=== PATIENT | female | born 1945 | race Caucasian/White ===

== ENCOUNTER → 2016-10-04 | Outpatient (CLI) | payer MEDICARE, MEDICAID ==
[2016-10-04 12:08] LABS: CHLORIDE,CL 103 mmol/L (98-110); SODIUM,NA 138 mmol/L (136-146)
== END ==
LOC: MW.CHIM 11:17
PROVIDERS: ATTEND Internal Medicine
DX: R03.0 Elevated blood-pressure reading, without diagnosis of hypertension (principal); E66.9 Obesity, unspecified; E78.00 Pure hypercholesterolemia, unspecified; E03.9 Hypothyroidism, unspecified; R73.09 Other abnormal glucose
CPT/HCPCS: 36415; 80053; 80061; 83036; 84443; 85025; 99214

== ENCOUNTER → 2016-11-04 | Outpatient (CLI) | payer MEDICARE, MEDICAID | LOC: MW.CHPM 08:00 | PROVIDERS: ATTEND Anesthesiology | DX: M51.36 Other intervertebral disc degeneration, lumbar region (principal); M96.1 Postlaminectomy syndrome, not elsewhere classified; M54.17 Radiculopathy, lumbosacral region; G89.4 Chronic pain syndrome | CPT/HCPCS: 99214 ==

== ENCOUNTER 2016-12-17 10:55 | Day surgery (SDC) | payer MEDICAID, MEDICARE ==
[~2016-12-17 10:55] MED LIST: Betamethasone Acetate/Betamethasone Sod Phosphate 30 MG/5 ML MDV ONE; Lidocaine 2% 5 ML SDV ONE; Ropivacaine 0.5% 5 MG/ML 30 ML SDV ONE
[2016-12-17] MEDS ORDERED: Iopamidol 408 MG/ML 200 ML SDV IV ONE (14:36)
--- NOTE | 2016-12-17 19:06 | OR ---
SURGEON: Danielle Bro D.O. DATE OF PROCEDURE: 12/17/2016 OR STAFF PRESENT: 1. Bebe Chang RN. 2. Reza Saravia RN. PROPERTY DISPOSAL MANAGER: RT Liliya. WOUND CLASSIFICATION: I. PREOPERATIVE DIAGNOSES: 1. Failed back surgery syndrome. 2. Chronic pain syndrome. POSTOPERATIVE DIAGNOSES: 1. Failed back surgery syndrome. 2. Chronic pain syndrome. PROCEDURE PERFORMED: 1. Caudal epidural steroid injection. 2. Fluoroscopic guidance for needle placement. 3. Local with oral Valium for sedation. SCREENING QUESTIONS: The patient answered "no" to all of the following questions: 1. Are you allergic to latex? 2. Do you have a bleeding disorder? 3. Do you have any current local or systemic infections? 4. Are you taking any anti-inflammatories or blood thinners? 5. Do you have any joint replacements, heart valve replacements, or a pacemaker? DESCRIPTION OF PROCEDURE: The patient had the procedure thoroughly explained including all possible risks, benefits and alternatives. Consent was signed in my clinic indicating understanding and willingness to proceed. The patient presented to [facility] [place] and was escorted to the dressing room to disrobe and change into a hospital gown. Preoperative vital signs were taken and stable. The patient reported that Valium was taken prior to the procedure. The patient was brought back to the procedure room and placed in the prone position on the procedure room table. A pillow was placed under the hips in order to flatten the lumbar lordosis. The back was prepped with ChloraPrep and sterilely draped. All personnel in the operating room were dressed in appropriate attire including surgical scrubs, head and shoe covers. This was to ensure sterility while in the treatment room. During the time fluoroscopy was in use, all personnel in the operating room wore lead thorpe with thyroid collars. Sterile technique was used throughout the procedure. The patient was awake and conversant throughout the procedure. There was no evidence of infection at the site of needle insertion. Skeletal landmarks were identified under fluoroscopy for the caudal epidural. Skin was anesthetized with 2% lidocaine with a sterile 27-gauge 1.5 inch needle. Then a 20-gauge Tuohy epidural needle was placed in the epidural space with loss of resistance technique under fluoroscopic guidance. No heme, cerebrospinal fluid, or paresthesias were noted. Isovue-200 contrast dye was injected in 0.2 cubic centimeter increments and seen to outline the epidural space in both AP and lateral views. There was no intravascular flow pattern observed under live fluoroscopy. Then 12 milligrams of Celestone was slowly injected after negative aspiration. The patient tolerated the procedure well. Vital signs were stable during and after the procedure. The staff escorted the patient to the recovery area and the patient was released in stable condition after a brief stay in the recovery room monitored by the nurse. The patient was given both oral and written discharge and follow up instructions with recommendation to follow up given for 2-3 weeks. The patient voiced understanding including understanding of those signs and symptoms that would require emergency care. The patient knows how to contact the office if there are any additional problems or questions in the meantime. PREOPERATIVE PAIN: 8/10. POSTOPERATIVE PAIN: 0/10. FOLLOWUP: Follow up in the Pain Clinic in 3-4 weeks. CASIMIRO / TIMOTHY /[id number] TONIA
== END 2016-12-17 13:57 | disposition home or self-care (01) ==
LOC: MW.SDS 10:55
PROVIDERS: ATTEND Anesthesiology
DX: G89.4 Chronic pain syndrome (principal); M96.1 Postlaminectomy syndrome, not elsewhere classified; M54.17 Radiculopathy, lumbosacral region; I71.4 Abdominal aortic aneurysm, without rupture; I10 Essential (primary) hypertension; J44.9 Chronic obstructive pulmonary disease, unspecified; K21.9 Gastro-esophageal reflux disease without esophagitis; E78.00 Pure hypercholesterolemia, unspecified; E03.9 Hypothyroidism, unspecified; E66.9 Obesity, unspecified; F41.9 Anxiety disorder, unspecified; F17.210 Nicotine dependence, cigarettes, uncomplicated; Z88.8 Allergy status to other drugs, medicaments and biological substances; Z79.899 Other long term (current) drug therapy; Z90.49 Acquired absence of other specified parts of digestive tract; Z90.710 Acquired absence of both cervix and uterus; Z91.038 Other insect allergy status; Z87.09 Personal history of other diseases of the respiratory system
CPT/HCPCS: 62323; J0702; Q9966; J2795

== ENCOUNTER 2017-04-03 11:15 | Day surgery (SDC) | payer MEDICAID, MEDICARE ==
[2017-04-03] MEDS ORDERED: Iopamidol 408 MG/ML 200 ML SDV ONE (11:50)
[2017-04-03] MEDS ORDERED: Lidocaine 2% 5 ML SDV ONE (11:58)
[2017-04-03] MEDS ORDERED: Ropivacaine 0.5% 5 MG/ML 30 ML SDV ONE (11:58)
[2017-04-03] MEDS ORDERED: Betamethasone Acetate/Betamethasone Sod Phosphate 30 MG/5 ML MDV ONE (11:58)
--- NOTE | 2017-04-03 17:45 | OR ---
SURGEON: Danielle Bro D.O. DATE OF PROCEDURE: 04/03/2017 OR STAFF PRESENT: 1. Yoni Reed. 2. Lupillo Izquierdo. 3. RT. Liliya WOUND CLASSIFICATION: I. PREOPERATIVE DIAGNOSES: 1. Failed back surgery syndrome. 2. Chronic low back pain. 3. Lumbar radiculopathy. POSTOPERATIVE DIAGNOSES: 1. Failed back surgery syndrome. 2. Chronic low back pain. 3. Lumbar radiculopathy. PROCEDURES PERFORMED: 1. Caudal epidural steroid injection. 2. Fluoroscopic guidance for needle placement. 3. Local with oral Valium for sedation. DESCRIPTION OF PROCEDURE: The patient had the procedure thoroughly explained including all possible risks, benefits and alternatives. Consent was signed in my clinic indicating understanding and willingness to proceed. The patient presented to [facility] [place] and was escorted to the dressing room to disrobe and change into a hospital gown. Preoperative vital signs were taken and stable. The patient reported that Valium was taken prior to the procedure. The patient was brought back to the procedure room and placed in the prone position on the procedure room table. A pillow was placed under the hips in order to flatten the lumbar lordosis. The back was prepped with ChloraPrep and sterilely draped. All personnel in the operating room were dressed in appropriate attire including surgical scrubs, head and shoe covers. This was to ensure sterility while in the treatment room. During the time fluoroscopy was in use, all personnel in the operating room wore lead thorpe with thyroid collars. Sterile technique was used throughout the procedure. The patient was awake and conversant throughout the procedure. There was no evidence of infection at the site of needle insertion. Skeletal landmarks were identified under fluoroscopy for the caudal epidural. Skin was anesthetized with 2% lidocaine with a sterile 27-gauge 1.5 inch needle. Then a 20-gauge Tuohy epidural needle was placed in the epidural space with loss of resistance technique under fluoroscopic guidance. No heme, cerebrospinal fluid, or paresthesias were noted. Isovue-200 contrast dye was injected in 0.2 cubic centimeter increments and seen to outline the epidural space in both AP and lateral views. There was no intravascular flow pattern observed under live fluoroscopy. Then 12 milligrams of Celestone was slowly injected after negative aspiration. The patient tolerated the procedure well. Vital signs were stable during and after the procedure. The staff escorted the patient to the recovery area and the patient was released in stable condition after a brief stay in the recovery room monitored by the nurse. The patient was given both oral and written discharge and follow up instructions with recommendation to follow up given for 2-3 weeks. The patient voiced understanding including understanding of those signs and symptoms that would require emergency care. The patient knows how to contact the office if there are any additional problems or questions in the meantime. PREOPERATIVE PAIN: 8/10. POSTOPERATIVE PAIN: 0/10. FOLLOWUP: Follow up in the Pain Clinic in one month. CASIMIRO / TIMOTHY /[id number] TONIA
== END 2017-04-03 13:28 | disposition home or self-care (01) ==
LOC: MW.SDS 11:15
PROVIDERS: ATTEND Anesthesiology
DX: G89.4 Chronic pain syndrome (principal); M96.1 Postlaminectomy syndrome, not elsewhere classified; M51.16 Intervertebral disc disorders with radiculopathy, lumbar region; J44.9 Chronic obstructive pulmonary disease, unspecified; K21.9 Gastro-esophageal reflux disease without esophagitis; E78.00 Pure hypercholesterolemia, unspecified; E03.9 Hypothyroidism, unspecified; E66.9 Obesity, unspecified; F17.200 Nicotine dependence, unspecified, uncomplicated; M48.06 Spinal stenosis, lumbar region; M43.16 Spondylolisthesis, lumbar region; Z87.440 Personal history of urinary (tract) infections; Z88.5 Allergy status to narcotic agent; Z88.6 Allergy status to analgesic agent; Z88.8 Allergy status to other drugs, medicaments and biological substances; Z79.51 Long term (current) use of inhaled steroids; Z79.899 Other long term (current) drug therapy; Z91.030 Bee allergy status; Z90.49 Acquired absence of other specified parts of digestive tract; Z90.710 Acquired absence of both cervix and uterus; Z98.890 Other specified postprocedural states; Z68.38 Body mass index [BMI] 38.0-38.9, adult
CPT/HCPCS: 62323; J0702; J2795; Q9966

== ENCOUNTER 2019-07-23 13:57 | Observation (INO) | payer MEDICAID, MEDICARE ==
[2019-07-23] MEDS ORDERED: Albuterol/Ipratropium 3.0-0.5 MG/3 ML Neb Soln NEB ONE (14:21)
[2019-07-23] MEDS ORDERED: methylPREDNISolone Sodium Succinate 125 MG/2 ML SDV IV ONE (14:45)
--- NOTE | 2019-07-23 14:49 | EDM.PDOC ---
ED HPI GENERAL MEDICAL PROBLEM - General Chief Complaint: Respiratory Problem Stated Complaint: Cheif complaint of SOB Time Seen by Provider: 07/23/19 14:45 Source of Information: Reports: Patient History Limitations: Reports: No Limitations - History of Present Illness INITIAL COMMENTS - FREE TEXT/NARRATIVE: This 74 year old female is admitted to the ED by a friends car with a chief complaint of increasing SOB over the past 2 months. She denies any chest pain at time of my evaluation. She has received a Duoneb treatment prior to my evaluation. She state that she has a history of COPD. No radiation of pain in her extremities or her shoulder or jaw. Onset: Gradual (over 2 months.) Duration: Waxing/Waning Location: Reports: Chest. Denies: Upper Extremity, Left, Upper Extremity, Right , Lower Extremity, Right, Radiates to Quality: Reports: Other (No chest pain but complains of SOB with wheezing.) Severity: Moderate Improves with: Reports: None Worsens with: Reports: Breathing Context: Reports: Activity Associated Symptoms: Reports: Cough, Shortness of Breath. Denies: Diaphoresis, Fever/Chills, Loss of Appetite, Nausea/Vomiting, Syncope, Weakness Back Pain Score (Numeric/FACES): 8 - Related Data Allergies Allergy/AdvReac Type Severity Reaction Status Date / Time all pain meds Allergy Other Uncoded 07/23/19 14:00 Home Meds: Home Meds Albuterol [Ventolin HFA] 2 puff INH Q4HRRT PRN 07/23/19 [History] Apixaban [Eliquis] 5 mg PO DAILY 07/23/19 [History] Budesonide/Formoterol [Symbicort 160-4.5 MCG] 2 puff INH BID 07/23/19 [History] Diltiazem HCl [Diltiazem ER] 180 mg PO BEDTIME 07/23/19 [History] Doxycycline [Doxycycline Hyclate] 100 mg PO BID 07/23/19 [History] Furosemide 40 mg PO DAILY 07/23/19 [History] LORazepam 0.5 mg PO BID PRN 07/23/19 [History] Levothyroxine Sodium [Synthroid] 112 mcg PO ACBREAKFAST 07/23/19 [History] Montelukast [Singulair] 10 mg PO BEDTIME 07/23/19 [History] Pantoprazole [ProTONIX] 40 mg PO DAILY 07/23/19 [History] Rosuvastatin Calcium 20 mg PO DAILY 07/23/19 [History] Tiotropium [Spiriva] 18 mcg INH DAILY 07/23/19 [History] predniSONE [Prednisone] 0 mg PO DAILY 07/23/19 [History] tiZANidine [Zanaflex] 0 mg PO Q8H PRN 07/23/19 [History] Past Medical History Cardiovascular History: Reports: Heart Failure Respiratory History: Reports: COPD Musculoskeletal History: Reports: Osteoarthritis Psychiatric History: Reports: Anxiety, Depression Other Endocrine/Metabolic History: thyroid problems - Infectious Disease History Infectious Disease History: Reports: Measles, Rubella Social & Family History - Family History Family Medical History: Noncontributory - Tobacco Use Smoking Status *Q: Former Smoker Used Tobacco, but Quit: Yes Month/Year Tobacco Last Used: 07/2019 ED ROS GENERAL - Review of Systems Review Of Systems: See Below Constitutional: Reports: No Symptoms. Denies: Fever, Chills, Fatigue, Night Sweats, Diaphoresis HEENT: Reports: No Symptoms Respiratory: Reports: Wheezing (she states in the upper chest.), Cough. Denies : Pleuritic Chest Pain, Sputum, Hemoptysis Cardiovascular: Reports: Dyspnea on Exertion (mild), Orthopnea (very mild orthopnea). Denies: Chest Pain, Claudication, Edema, Lightheadedness, Palpitations, PND, Syncope Endocrine: Reports: No Symptoms GI/Abdominal: Reports: No Symptoms : Reports: No Symptoms Musculoskeletal: Reports: No Symptoms Skin: Denies: Cyanosis, Mottled, Pallor, Diaphoresis, Rash, Erythema Neurological: Reports: No Symptoms Psychiatric: Reports: No Symptoms Hematologic/Lymphatic: Reports: No Symptoms Immunologic: Reports: No Symptoms ED EXAM, GENERAL - Physical Exam Exam: See Below Exam Limited By: No Limitations General Appearance: Alert, Mild Distress (Respiratory distress (the patient was given duoneb before I examined her).), Obese Eye Exam: Bilateral Eye: Normal Fundi, Normal Inspection, PERRL Ears: Normal External Exam, Normal Canal, Hearing Grossly Normal, Normal TMs Nose: Normal Inspection, Normal Mucosa, No Blood Throat/Mouth: Normal Inspection, Normal Lips, Normal Teeth, Normal Gums, Normal Oropharynx, Normal Voice, No Airway Compromise Head: Atraumatic, Normocephalic Neck: Normal Inspection, Supple, Non-Tender, Full Range of Motion. No: Carotid Bruit, Limited Range of Motion, Thyromegaly Respiratory/Chest: No Respiratory Distress, No Accessory Muscle Use, Chest Non- Tender, Wheezing (mild wheezing noted in the apex of both lungs with a prolonged expiratory phase.). No: Decreased Breath Sounds, Crackles, Rales, Rhonchi Cardiovascular: Normal Peripheral Pulses, Regular Rate, Rhythm, No Edema, No Gallop, No JVD, No Rub, Systolic Murmur (grade 2/6 best heard at the base.) Peripheral Pulses: 2+: Popliteal (L), Popliteal (R), 3+: Radial (L), Radial (R) , Dorsalis Pedis (L), Dorsalis Pedis (R), 4+: Carotid (L), Carotid (R) GI/Abdominal: Normal Bowel Sounds, Soft, Non-Tender, No Organomegaly, No Distention, No Abnormal Bruit, No Mass Back Exam: Normal Inspection, Full Range of Motion, NT Extremities: Normal Inspection, Normal Range of Motion, Non-Tender, Normal Capillary Refill, No Pedal Edema Neurological: Alert, Oriented, CN II-XII Intact, Normal Cognition, Normal Gait, Normal Reflexes, No Motor/Sensory Deficits Psychiatric: Normal Affect, Normal Mood Skin Exam: Warm, Dry, Intact, Normal Color, No Rash Course - Vital Signs Text/Narrative:: I have reviewed all of the patients lab and imaging studies. I discussed with the patient and her daughter her findings which include COPD with EXH as well as mild CHF. I spoke with Dr. Schmidt at 4:37 PM. The patient will be admitted to [facility]. The patient and daughter agrees with the admission. The patient did have a good response to her initial treatment. Last Recorded V/S: Last Vital Signs Temp 96.2 F 07/23/19 14:01 Pulse 110 H 07/23/19 16:23 Resp 18 07/23/19 16:23 BP 130/90 07/23/19 16:23 Pulse Ox 97 07/23/19 16:23 - Orders/Labs/Meds Orders: Active Orders 24 hr Category Date Time Status EKG 12 Lead [EKG Documentation Completion] [RC] STAT Care 07/23/19 14:18 Active RT Aerosol Therapy [RC] ASDIRECTED Care 07/23/19 14:21 Active Sodium Chloride 0.9% [Normal Saline] 500 ml Med 07/23/19 15:00 Active IV .BOLUS Medication Orders Sodium Chloride (Normal Saline) 500 mls @ 500 drops/hr IV .BOLUS ANGE Last Admin: 07/23/19 14:59 Dose: 500 drops/hr Labs: Laboratory Tests 07/23/19 07/23/19 07/23/19 Range/Units 14:05 14:05 14:05 WBC 7.40 (4.0-11.0) K/uL RBC 3.95 L (4.30-5.90) M/uL Hgb 12.4 (12.0-16.0) g/dL Hct 39.8 (36.0-46.0) % MCV 100.8 H (80.0-98.0) fL MCH 31.4 (27.0-32.0) pg MCHC 31.2 (31.0-37.0) g/dL RDW Std Deviation 61.5 (28.0-62.0) fl RDW Coeff of Anne 17 H (11.0-15.0) % Plt Count 151 (150-400) K/uL MPV 12.50 H (7.40-12.00) fL Neut % (Auto) 86.8 H (48.0-80.0) % Lymph % (Auto) 9.5 L (16.0-40.0) % [place] % (Auto) 3.5 (0.0-15.0) % Eos % (Auto) 0.1 (0.0-7.0) % Baso % (Auto) 0.1 (0.0-1.5) % Neut # (Auto) 6.4 H (1.4-5.7) K/uL Lymph # (Auto) 0.7 (0.6-2.4) K/uL [place] # (Auto) 0.3 (0.0-0.8) K/uL Eos # (Auto) 0.0 (0.0-0.7) K/uL Baso # (Auto) 0.0 (0.0-0.1) K/uL Nucleated RBC % 0.0 /100WBC Nucleated RBCs # 0 K/uL INR 1.30 Sodium 132 L (136-145) mmol/L Potassium 3.5 (3.5-5.1) mmol/L Chloride 95 L (98-107) mmol/L Carbon Dioxide 24.9 (21.0-32.0) mmol/L BUN 20 H (7.0-18.0) mg/dL Creatinine 1.1 H (0.6-1.0) mg/dL Est Cr Clr Drug Dosing 40.38 mL/min Estimated GFR (MDRD) 48.6 ml/min Glucose 148 H (74-106) mg/dL Calcium 8.6 (8.5-10.1) mg/dL Magnesium (1.8-2.4) mg/dL Total Bilirubin 0.7 (0.2-1.0) mg/dL AST 35 (15-37) IU/L ALT 24 (14-63) IU/L Alkaline Phosphatase 88 (46-116) U/L Troponin I < 0.050 (0.000-0.056) ng/mL B-Natriuretic Peptide (<100) PG/ML Total Protein 6.6 (6.4-8.2) g/dL Albumin 3.6 (3.4-5.0) g/dL Globulin 3.0 (2.6-4.0) g/dL Albumin/Globulin Ratio 1.2 (0.9-1.6) Urine Color Urine Appearance Urine pH (5.0-8.0) Ur Specific [place] (1.001-1.035) Urine Protein (NEGATIVE) mg/dL Urine Glucose (UA) (NEGATIVE) mg/dL Urine Ketones (NEGATIVE) mg/dL Urine Occult Blood (NEGATIVE) Urine Nitrite (NEGATIVE) Urine Bilirubin (NEGATIVE) Urine Urobilinogen (<2.0) EU/dL Ur Leukocyte Esterase (NEGATIVE) 07/23/19 07/23/19 07/23/19 Range/Units 14:05 14:05 14:07 WBC (4.0-11.0) K/uL RBC (4.30-5.90) M/uL Hgb (12.0-16.0) g/dL Hct (36.0-46.0) % MCV (80.0-98.0) fL MCH (27.0-32.0) pg MCHC (31.0-37.0) g/dL RDW Std Deviation (28.0-62.0) fl RDW Coeff of Anne (11.0-15.0) % Plt Count (150-400) K/uL MPV (7.40-12.00) fL Neut % (Auto) (48.0-80.0) % Lymph % (Auto) (16.0-40.0) % [place] % (Auto) (0.0-15.0) % Eos % (Auto) (0.0-7.0) % Baso % (Auto) (0.0-1.5) % Neut # (Auto) (1.4-5.7) K/uL Lymph # (Auto) (0.6-2.4) K/uL [place] # (Auto) (0.0-0.8) K/uL Eos # (Auto) (0.0-0.7) K/uL Baso # (Auto) (0.0-0.1) K/uL Nucleated RBC % /100WBC Nucleated RBCs # K/uL INR Sodium (136-145) mmol/L Potassium (3.5-5.1) mmol/L Chloride (98-107) mmol/L Carbon Dioxide (21.0-32.0) mmol/L BUN (7.0-18.0) mg/dL Creatinine (0.6-1.0) mg/dL Est Cr Clr Drug Dosing mL/min Estimated GFR (MDRD) ml/min Glucose (74-106) mg/dL Calcium (8.5-10.1) mg/dL Magnesium 1.8 (1.8-2.4) mg/dL Total Bilirubin (0.2-1.0) mg/dL AST (15-37) IU/L ALT (14-63) IU/L Alkaline Phosphatase (46-116) U/L Troponin I (0.000-0.056) ng/mL B-Natriuretic Peptide 364 H (<100) PG/ML Total Protein (6.4-8.2) g/dL Albumin (3.4-5.0) g/dL Globulin (2.6-4.0) g/dL Albumin/Globulin Ratio (0.9-1.6) Urine Color YELLOW Urine Appearance CLEAR Urine pH 6.0 (5.0-8.0) Ur Specific [place] <= 1.005 (1.001-1.035) Urine Protein NEGATIVE (NEGATIVE) mg/dL Urine Glucose (UA) NEGATIVE (NEGATIVE) mg/dL Urine Ketones NEGATIVE (NEGATIVE) mg/dL Urine Occult Blood NEGATIVE (NEGATIVE) Urine Nitrite NEGATIVE (NEGATIVE) Urine Bilirubin NEGATIVE (NEGATIVE) Urine Urobilinogen 0.2 (<2.0) EU/dL Ur Leukocyte Esterase NEGATIVE (NEGATIVE) Meds: Medications Generic Name Dose Route Start Last Admin Trade Name Freq PRN Reason Stop Dose Admin Sodium Chloride 500 mls @ 500 drops/hr 07/23/19 15:00 07/23/19 14:59 Normal Saline IV 500 drops/hr .BOLUS ANGE Administration Discontinued Medications Generic Name Dose Route Start Last Admin Trade Name Freq PRN Reason Stop Dose Admin Albuterol/Ipratropium 3 ml 07/23/19 14:21 07/23/19 14:32 Duoneb 3.0-0.5 Mg/3 Ml NEB 07/23/19 14:22 3 ml ONETIME ONE Administration Magnesium Sulfate 2 gm/ Premix 50 mls @ 50 mls/hr 07/23/19 15:26 07/23/19 15: 52 IV 07/23/19 16:25 Not Given ONETIME ONE Magnesium Sulfate 1 gm/ Sodium 52 mls @ 104 mls/hr 07/23/19 15:45 07/23/19 15 :49 Chloride IV 07/23/19 16:14 104 mls/hr ONETIME ONE Administration Methylprednisolone Sodium Succinate 125 mg 07/23/19 14:45 07/23/19 14:59 Solu-Medrol IV 07/23/19 14:46 125 mg ONETIME ONE Administration Departure - Departure Time of Disposition: 16:42 Disposition: Admitted As Inpatient 66 Condition: Fair Clinical Impression: COPD exacerbation, Congenital heart disease in adult - Discharge Information Care Plan Goals: The patient has been admitted to Dr. Schmidt for inpatient care under tele obs. Sepsis Event Note - Evaluation Sepsis Screening Result: No Definite Risk - Focused Exam Vital Signs: Vital Signs Temp Pulse Resp BP Pulse Ox 07/23/19 16:23 110 H 18 130/90 97 07/23/19 14:01 96.2 F 101 H 30 H 109/88 88 L Date Exam was Performed: 07/23/19 Time Exam was Performed: 16:37 - My Orders Last 24 Hours: My Active Orders 07/23/19 14:18 EKG 12 Lead [EKG Documentation Completion] [RC] STAT 07/23/19 14:21 RT Aerosol Therapy [RC] ASDIRECTED 07/23/19 15:00 Sodium Chloride 0.9% [Normal Saline] 500 ml IV .BOLUS - Assessment/Plan Last 24 Hours: My Active Orders 07/23/19 14:18 EKG 12 Lead [EKG Documentation Completion] [RC] STAT 07/23/19 14:21 RT Aerosol Therapy [RC] ASDIRECTED 07/23/19 15:00 Sodium Chloride 0.9% [Normal Saline] 500 ml IV .BOLUS
[2019-07-23 14:54] LABS: BLOOD UREA NITROGEN,BUN 20 mg/dL (7.0-18.0); CARBON DIOXIDE,CO2 24.9 mmol/L (21.0-32.0); CHLORIDE,CL 95 mmol/L (98-107); GLUCOSE RANDOM 148 mg/dL (74-106); POTASSIUM,K 3.5 mmol/L (3.5-5.1); SODIUM,NA 132 mmol/L (136-145)
--- NOTE | 2019-07-23 14:58 | CR ---
Chest: Portable view of the chest was obtained. Comparison: Prior chest x-ray of 06/17/19. Heart is enlarged. Pulmonary vessels appear slightly congested. Lungs otherwise are clear. Bony structures are grossly intact. Partially visualized prior lumbar spine surgery is noted. Impression: 1. Findings suspicious for mild CHF. Diagnostic code #3 This report was dictated in [place] Standard Time
[2019-07-23] MEDS ORDERED: Sodium Chloride 0.9% 500 ML IV SCH (15:00)
[2019-07-23] MEDS ORDERED: Magnesium Sulfate/Water 2 GM in Premix Bag 1 BAG IV ONE (15:26)
[2019-07-23] MEDS: Albuterol/Ipratropium 3.0-0.5 MG/3 ML Neb Soln NEB SCH ×2 (18:10→21:10)
--- NOTE | 2019-07-23 18:37 | PCM.HP.2 ---
<Itz Durán - Last Filed: 07/23/19 19:36> H&P History of Present Illness - General Date of Service: 07/23/19 Admit Problem/Dx: Admission Diagnosis/Problem Admission Diagnosis/Problem COPD, Moderate chronic obstructive pulmonary disease - History of Present Illness Initial Comments - Free Text/Narative: It is a 74-year-old female with a significant past medical history of COPD, A. fib, abdominal aortic aneurysm, DDD, right hip osteoarthritis, hypothyroidism, hypercholesterolemia: Presenting today with a worsening of shortness of breath especially at rest. Patient has, for the past 2 months complaining of worsening of her shortness of breath, especially with exertion but now worsening even at rest. States she feels fatigued and has a hard time catching her breath; endorses a 45 to 50-year pack per day smoking history; mentions she knew something was wrong even after she had not smoked for 4 days. Patient has been seen by her primary provider and advised to be admitted to the hospital numerous times on previous visits (per chart review); patient however did not go in at those times. Patient arrived with family member to emergency department. ED course: O2 saturations had dipped to 88%; patient was placed on 2 L nasal cannula with improvement of her saturations. Chest x-ray did not show any acute infiltrates however was concerning for a mild CHF picture. Initial troponin was negative BNP was elevated however. Was in similar range as previous episodes. recent echo. : April 2019 with ejection fraction of 60 to 65%. Given 1 dose of IV methylprednisolone. Bedside: Patient endorsed breathing is slightly improved but is still not feeling like she can take a deep breath. Back Pain Score (Numeric/FACES): 8 - Related Data Allergies/Adverse Reactions: Allergies Allergy/AdvReac Type Severity Reaction Status Date / Time all pain meds Allergy Other Uncoded 07/23/19 18:04 Home Medications: Home Meds Albuterol [Ventolin HFA] 2 puff INH Q4HRRT PRN 07/23/19 [History] Apixaban [Eliquis] 5 mg PO DAILY 07/23/19 [History] Budesonide/Formoterol [Symbicort 160-4.5 MCG] 2 puff INH BID 07/23/19 [History] Diltiazem HCl [Diltiazem ER] 180 mg PO BEDTIME 07/23/19 [History] Doxycycline [Doxycycline Hyclate] 100 mg PO BID 07/23/19 [History] Furosemide 40 mg PO DAILY 07/23/19 [History] LORazepam 0.5 mg PO BID PRN 07/23/19 [History] Levothyroxine Sodium [Synthroid] 112 mcg PO ACBREAKFAST 07/23/19 [History] Montelukast [Singulair] 10 mg PO BEDTIME 07/23/19 [History] Pantoprazole [ProTONIX] 40 mg PO DAILY 07/23/19 [History] Rosuvastatin Calcium 20 mg PO DAILY 07/23/19 [History] Tiotropium [Spiriva] 18 mcg INH DAILY 07/23/19 [History] predniSONE [Prednisone] 0 mg PO DAILY 07/23/19 [History] tiZANidine [Zanaflex] 0 mg PO Q8H PRN 07/23/19 [History] Past Medical History Cardiovascular History: Reports: Heart Failure Respiratory History: Reports: COPD Musculoskeletal History: Reports: Osteoarthritis Psychiatric History: Reports: Anxiety, Depression Other Endocrine/Metabolic History: thyroid problems - Infectious Disease History Infectious Disease History: Reports: Measles, Rubella Social & Family History - Family History Family Medical History: Noncontributory - Tobacco Use Smoking Status *Q: Former Smoker Used Tobacco, but Quit: Yes Month/Year Tobacco Last Used: 07/2019 H&P Review of Systems - Review of Systems: General: Reports: No Symptoms. Denies: Fever, Chills, Fatigue HEENT: Reports: No Symptoms Pulmonary: Reports: Shortness of Breath, Wheezing, Cough. Denies: Sputum Cardiovascular: Reports: Dyspnea on Exertion, Orthopnea. Denies: Chest Pain, Palpitations Gastrointestinal: Denies: Abdominal Pain, Constipation, Diarrhea, Nausea Genitourinary: Reports: No Symptoms Musculoskeletal: Reports: Back Pain, Joint Pain Skin: Reports: No Symptoms Psychiatric: Denies: Confusion, Depression Neurological: Denies: Confusion, Dizziness, Headache Exam - Vital Signs Vital Signs: Last Vital Signs Temp 97 F 07/23/19 17:56 Pulse 82 07/23/19 17:56 Resp 20 07/23/19 17:56 BP 129/79 07/23/19 17:56 Pulse Ox 97 07/23/19 17:56 Weight: 102 kg - Exam Quality Assessment: Supplemental Oxygen General: Alert, Oriented HEENT: EOMI, Other (dry oral mucosa ) Neck: Supple, Trachea Midline Lungs: Other (prolonged expiratory phase w/ audivle wheezing. Mild diminishments of BS in b/l lung bases ) Cardiovascular: Regular Rate, Irregular Rhythm GI/Abdominal Exam: Normal Bowel Sounds, Soft, Non-Tender, Other (horizonatal surgical scar extending from umbilicus to suprapubic region ) Extremities: Normal Inspection, Non-Tender, No Pedal Edema Skin: Warm, Dry - Patient Data Lab Results Last 24 hrs: Laboratory Results - last 24 hr 07/23/19 07/23/19 07/23/19 Range/Units 14:05 14:05 14:05 WBC 7.40 (4.0-11.0) K/uL RBC 3.95 L (4.30-5.90) M/uL Hgb 12.4 (12.0-16.0) g/dL Hct 39.8 (36.0-46.0) % MCV 100.8 H (80.0-98.0) fL MCH 31.4 (27.0-32.0) pg MCHC 31.2 (31.0-37.0) g/dL RDW Std Deviation 61.5 (28.0-62.0) fl RDW Coeff of Anne 17 H (11.0-15.0) % Plt Count 151 (150-400) K/uL MPV 12.50 H (7.40-12.00) fL Neut % (Auto) 86.8 H (48.0-80.0) % Lymph % (Auto) 9.5 L (16.0-40.0) % [place] % (Auto) 3.5 (0.0-15.0) % Eos % (Auto) 0.1 (0.0-7.0) % Baso % (Auto) 0.1 (0.0-1.5) % Neut # (Auto) 6.4 H (1.4-5.7) K/uL Lymph # (Auto) 0.7 (0.6-2.4) K/uL [place] # (Auto) 0.3 (0.0-0.8) K/uL Eos # (Auto) 0.0 (0.0-0.7) K/uL Baso # (Auto) 0.0 (0.0-0.1) K/uL Nucleated RBC % 0.0 /100WBC Nucleated RBCs # 0 K/uL INR 1.30 Sodium 132 L (136-145) mmol/L Potassium 3.5 (3.5-5.1) mmol/L Chloride 95 L (98-107) mmol/L Carbon Dioxide 24.9 (21.0-32.0) mmol/L BUN 20 H (7.0-18.0) mg/dL Creatinine 1.1 H (0.6-1.0) mg/dL Est Cr Clr Drug Dosing 40.38 mL/min Estimated GFR (MDRD) 48.6 ml/min Glucose 148 H (74-106) mg/dL Calcium 8.6 (8.5-10.1) mg/dL Magnesium (1.8-2.4) mg/dL Total Bilirubin 0.7 (0.2-1.0) mg/dL AST 35 (15-37) IU/L ALT 24 (14-63) IU/L Alkaline Phosphatase 88 (46-116) U/L Troponin I < 0.050 (0.000-0.056) ng/mL B-Natriuretic Peptide (<100) PG/ML Total Protein 6.6 (6.4-8.2) g/dL Albumin 3.6 (3.4-5.0) g/dL Globulin 3.0 (2.6-4.0) g/dL Albumin/Globulin Ratio 1.2 (0.9-1.6) Urine Color Urine Appearance Urine pH (5.0-8.0) Ur Specific [place] (1.001-1.035) Urine Protein (NEGATIVE) mg/dL Urine Glucose (UA) (NEGATIVE) mg/dL Urine Ketones (NEGATIVE) mg/dL Urine Occult Blood (NEGATIVE) Urine Nitrite (NEGATIVE) Urine Bilirubin (NEGATIVE) Urine Urobilinogen (<2.0) EU/dL Ur Leukocyte Esterase (NEGATIVE) 07/23/19 07/23/19 07/23/19 Range/Units 14:05 14:05 14:07 WBC (4.0-11.0) K/uL RBC (4.30-5.90) M/uL Hgb (12.0-16.0) g/dL Hct (36.0-46.0) % MCV (80.0-98.0) fL MCH (27.0-32.0) pg MCHC (31.0-37.0) g/dL RDW Std Deviation (28.0-62.0) fl RDW Coeff of Anne (11.0-15.0) % Plt Count (150-400) K/uL MPV (7.40-12.00) fL Neut % (Auto) (48.0-80.0) % Lymph % (Auto) (16.0-40.0) % [place] % (Auto) (0.0-15.0) % Eos % (Auto) (0.0-7.0) % Baso % (Auto) (0.0-1.5) % Neut # (Auto) (1.4-5.7) K/uL Lymph # (Auto) (0.6-2.4) K/uL [place] # (Auto) (0.0-0.8) K/uL Eos # (Auto) (0.0-0.7) K/uL Baso # (Auto) (0.0-0.1) K/uL Nucleated RBC % /100WBC Nucleated RBCs # K/uL INR Sodium (136-145) mmol/L Potassium (3.5-5.1) mmol/L Chloride (98-107) mmol/L Carbon Dioxide (21.0-32.0) mmol/L BUN (7.0-18.0) mg/dL Creatinine (0.6-1.0) mg/dL Est Cr Clr Drug Dosing mL/min Estimated GFR (MDRD) ml/min Glucose (74-106) mg/dL Calcium (8.5-10.1) mg/dL Magnesium 1.8 (1.8-2.4) mg/dL Total Bilirubin (0.2-1.0) mg/dL AST (15-37) IU/L ALT (14-63) IU/L Alkaline Phosphatase (46-116) U/L Troponin I (0.000-0.056) ng/mL B-Natriuretic Peptide 364 H (<100) PG/ML Total Protein (6.4-8.2) g/dL Albumin (3.4-5.0) g/dL Globulin (2.6-4.0) g/dL Albumin/Globulin Ratio (0.9-1.6) Urine Color YELLOW Urine Appearance CLEAR Urine pH 6.0 (5.0-8.0) Ur Specific [place] <= 1.005 (1.001-1.035) Urine Protein NEGATIVE (NEGATIVE) mg/dL Urine Glucose (UA) NEGATIVE (NEGATIVE) mg/dL Urine Ketones NEGATIVE (NEGATIVE) mg/dL Urine Occult Blood NEGATIVE (NEGATIVE) Urine Nitrite NEGATIVE (NEGATIVE) Urine Bilirubin NEGATIVE (NEGATIVE) Urine Urobilinogen 0.2 (<2.0) EU/dL Ur Leukocyte Esterase NEGATIVE (NEGATIVE) Result Diagrams: 07/23/19 14:05 07/23/19 14:05 [facility] Results Last 24 hrs: Microbiology 07/23/19 14:13 Influenza Type A Antigen Screen - Final Nasopharyngeal Swab NEGATIVE INFLUENZA A VIRUS AG REFERENCE RANGE: NEGATIVE Influenza Type B Antigen Screen - Final NEGATIVE INFLUENZA B VIRUS AG REFERENCE RANGE: NEGATIVE Sepsis Event Note - Evaluation Sepsis Screening Result: No Definite Risk - Focused Exam Vital Signs: Vital Signs Temp Pulse Resp BP Pulse Ox 07/23/19 17:56 97 F 82 20 129/79 97 07/23/19 16:23 110 H 18 130/90 97 07/23/19 14:01 96.2 F 101 H 30 H 109/88 88 L Date Exam was Performed: 07/23/19 Time Exam was Performed: 19:36 Orders Last 24hrs: Active Orders 24 hr Category Date Time Status Admission Status [Patient Status] [ADT] Stat ADT 07/23/19 17:06 Active RT Aerosol Therapy [RC] ASDIRECTED Care 07/23/19 14:21 Active RT Aerosol Therapy [RC] ASDIRECTED Care 07/23/19 17:55 Active Up With Assistance [RC] ASDIRECTED Care 07/23/19 17:29 Active Heart Healthy Diet [DIET] Diet 07/24/19 Breakfast Active B-TYPE NATRIURETIC PEPTIDE,BNP [CHEM] AM Lab 07/24/19 05:11 Ordered TROPONIN I [CHEM] Routine Lab 07/23/19 22:00 Ordered Albuterol/Ipratropium [DuoNeb 3.0-0.5 MG/3 ML] Med 07/23/19 18:00 Active 3 ml NEB Q4HRRT Sodium Chloride 0.9% [Normal Saline] 500 ml Med 07/23/19 15:00 Active IV .BOLUS methylPREDNISolone Sod Succ [Solu-MEDROL] Med 07/23/19 22:00 Active 40 mg IV Q8HR Code Status [Resuscitation Status] Routine Resus Stat 07/23/19 17:28 Ordered Medication Orders Albuterol/Ipratropium (Duoneb 3.0-0.5 Mg/3 Ml) 3 ml NEB Q4HRRT [facility] Last Admin: 07/23/19 18:10 Dose: 3 ml Sodium Chloride (Normal Saline) 500 mls @ 500 drops/hr IV .BOLUS [facility] Last Admin: 07/23/19 14:59 Dose: 500 drops/hr Methylprednisolone Sodium Succinate (Solu-Medrol) 40 mg IV Q8HR [facility] Assessment/Plan Comment:: Assessment 1. Acute hypoxic respiratory failure secondary to COPD exacerbation 2. History of atrial fibrillation on Eliquis 3. Hyponatremia 4. Elevated BNP 5. Past medical history: COPD, A. fib, abdominal aortic aneurysm, DDD, lumbar osteoarthritis, hypothyroidism, hypercholesterolemia, and morbid obesity Plan. Admit to observation/full code/heart healthy diet/activity: Up with assistance/ DVT prophylaxis; Eliquis 5 mg/GI prophylaxis: Pantoprazole 40 1. Hypoxia secondary to COPD exacerbation: Patient was given IV methylprednisolone in emergency department; continue with Solu-Medrol 40 every 8 hours; DuoNebs every 4 hours; oxygen via via nasal cannula. We will hold Lasix for tonight; BMP from April 2019 showed ejection fraction of 60 to 65%. No overt heart failure clinically speaking. Continue all other home medications including Eliquis 5 mg for patient's A. fib. Will hold other COPD medications including Spiriva. <Haim Schmidt - Last Filed: 07/24/19 11:31> H&P History of Present Illness - General Admit Problem/Dx: Admission Diagnosis/Problem Admission Diagnosis/Problem COPD, Moderate chronic obstructive pulmonary disease H&P Review of Systems - Review of Systems: Review Of Systems: See Below Exam - Exam Exam: See Below - Vital Signs Vital Signs: Last Vital Signs Temp 37.0 C 07/24/19 11:02 Pulse 104 H 07/24/19 11:02 Resp 18 07/24/19 11:02 BP 118/79 07/24/19 11:02 Pulse Ox 95 07/24/19 11:02 - Patient Data Lab Results Last 24 hrs: Laboratory Results - last 24 hr 07/23/19 07/23/1907/23/19 Range/Units 14:05 14:05 14:05 WBC 7.40 (4.0-11.0) K/uL RBC 3.95 L (4.30-5.90) M/uL Hgb 12.4 (12.0-16.0) g/dL Hct 39.8 (36.0-46.0) % MCV 100.8 H (80.0-98.0) fL MCH 31.4 (27.0-32.0) pg MCHC 31.2 (31.0-37.0) g/dL RDW Std Deviation 61.5 (28.0-62.0) fl RDW Coeff of Anne 17 H (11.0-15.0) % Plt Count 151 (150-400) K/uL MPV 12.50 H (7.40-12.00) fL Neut % (Auto) 86.8 H (48.0-80.0) % Lymph % (Auto) 9.5 L (16.0-40.0) % [place] % (Auto) 3.5 (0.0-15.0) % Eos % (Auto) 0.1 (0.0-7.0) % Baso % (Auto) 0.1 (0.0-1.5) % Neut # (Auto) 6.4 H (1.4-5.7) K/uL Lymph # (Auto) 0.7 (0.6-2.4) K/uL [place] # (Auto) 0.3 (0.0-0.8) K/uL Eos # (Auto) 0.0 (0.0-0.7) K/uL Baso # (Auto) 0.0 (0.0-0.1) K/uL Nucleated RBC % 0.0 /100WBC Nucleated RBCs # 0 K/uL INR 1.30 Sodium 132 L (136-145) mmol/L Potassium 3.5 (3.5-5.1) mmol/L Chloride 95 L (98-107) mmol/L Carbon Dioxide 24.9 (21.0-32.0) mmol/L BUN 20 H (7.0-18.0) mg/dL Creatinine 1.1 H (0.6-1.0) mg/dL Est Cr Clr Drug Dosing 40.38 mL/min Estimated GFR (MDRD) 48.6 ml/min Glucose 148 H (74-106) mg/dL Calcium 8.6 (8.5-10.1) mg/dL Phosphorus (2.6-4.7) mg/dL Magnesium (1.8-2.4) mg/dL Total Bilirubin 0.7 (0.2-1.0) mg/dL AST 35 (15-37) IU/L ALT 24 (14-63) IU/L Alkaline Phosphatase 88 (46-116) U/L Troponin I < 0.050 (0.000-0.056) ng/mL B-Natriuretic Peptide (<100) PG/ML Total Protein 6.6 (6.4-8.2) g/dL Albumin 3.6 (3.4-5.0) g/dL Globulin 3.0 (2.6-4.0) g/dL Albumin/Globulin Ratio 1.2 (0.9-1.6) Urine Color Urine Appearance Urine pH (5.0-8.0) Ur Specific [place] (1.001-1.035) Urine Protein (NEGATIVE) mg/dL Urine Glucose (UA) (NEGATIVE) mg/dL Urine Ketones (NEGATIVE) mg/dL Urine Occult Blood (NEGATIVE) Urine Nitrite (NEGATIVE) Urine Bilirubin (NEGATIVE) Urine Urobilinogen (<2.0) EU/dL Ur Leukocyte Esterase (NEGATIVE) 07/23/19 07/23/19 07/23/19 Range/Units 14:05 14:05 14:07 WBC (4.0-11.0) K/uL RBC (4.30-5.90) M/uL Hgb (12.0-16.0) g/dL Hct (36.0-46.0) % MCV (80.0-98.0) fL MCH (27.0-32.0) pg MCHC (31.0-37.0) g/dL RDW Std Deviation (28.0-62.0) fl RDW Coeff of Anne (11.0-15.0) % Plt Count (150-400) K/uL MPV (7.40-12.00) fL Neut % (Auto) (48.0-80.0) % Lymph % (Auto) (16.0-40.0) % [place] % (Auto) (0.0-15.0) % Eos % (Auto) (0.0-7.0) % Baso % (Auto) (0.0-1.5) % Neut # (Auto) (1.4-5.7) K/uL Lymph # (Auto) (0.6-2.4) K/uL [place] # (Auto) (0.0-0.8) K/uL Eos # (Auto) (0.0-0.7) K/uL Baso # (Auto) (0.0-0.1) K/uL Nucleated RBC % /100WBC Nucleated RBCs # K/uL INR Sodium (136-145) mmol/L Potassium (3.5-5.1) mmol/L Chloride (98-107) mmol/L Carbon Dioxide (21.0-32.0) mmol/L BUN (7.0-18.0) mg/dL Creatinine (0.6-1.0) mg/dL Est Cr Clr Drug Dosing mL/min Estimated GFR (MDRD) ml/min Glucose (74-106) mg/dL Calcium (8.5-10.1) mg/dL Phosphorus (2.6-4.7) mg/dL Magnesium 1.8 (1.8-2.4) mg/dL Total Bilirubin (0.2-1.0) mg/dL AST (15-37) IU/L ALT (14-63) IU/L Alkaline Phosphatase (46-116) U/L Troponin I (0.000-0.056) ng/mL B-Natriuretic Peptide 364 H (<100) PG/ML Total Protein (6.4-8.2) g/dL Albumin (3.4-5.0) g/dL Globulin (2.6-4.0) g/dL Albumin/Globulin Ratio (0.9-1.6) Urine Color YELLOW Urine Appearance CLEAR Urine pH 6.0 (5.0-8.0) Ur Specific [place] <= 1.005 (1.001-1.035) Urine Protein NEGATIVE (NEGATIVE) mg/dL Urine Glucose (UA) NEGATIVE (NEGATIVE) mg/dL Urine Ketones NEGATIVE (NEGATIVE) mg/dL Urine Occult Blood NEGATIVE (NEGATIVE) Urine Nitrite NEGATIVE (NEGATIVE) Urine Bilirubin NEGATIVE (NEGATIVE) Urine Urobilinogen 0.2 (<2.0) EU/dL Ur Leukocyte Esterase NEGATIVE (NEGATIVE) 07/23/19 07/24/19 07/24/19 Range/Units 22:05 05:50 05:50 WBC 6.73 (4.0-11.0) K/uL RBC 3.78 L (4.30-5.90) M/uL Hgb 11.7 L (12.0-16.0) g/dL Hct 37.5 (36.0-46.0) % MCV 99.2 H (80.0-98.0) fL MCH 31.0 (27.0-32.0) pg MCHC 31.2 (31.0-37.0) g/dL RDW Std Deviation 60.2 (28.0-62.0) fl RDW Coeff of Anne 17 H (11.0-15.0) % Plt Count 147 L (150-400) K/uL MPV 12.00 (7.40-12.00) fL Neut % (Auto) 89.0 H (48.0-80.0) % Lymph % (Auto) 7.7 L (16.0-40.0) % [place] % (Auto) 3.3 (0.0-15.0) % Eos % (Auto) 0.0 (0.0-7.0) % Baso % (Auto) 0.0 (0.0-1.5) % Neut # (Auto) 6.0 H (1.4-5.7) K/uL Lymph # (Auto) 0.5 L (0.6-2.4) K/uL [place] # (Auto) 0.2 (0.0-0.8) K/uL Eos # (Auto) 0.0 (0.0-0.7) K/uL Baso # (Auto) 0.0 (0.0-0.1) K/uL Nucleated RBC % 0.0 /100WBC Nucleated RBCs # 0 K/uL INR Sodium (136-145) mmol/L Potassium (3.5-5.1) mmol/L Chloride (98-107) mmol/L Carbon Dioxide (21.0-32.0) mmol/L BUN (7.0-18.0) mg/dL Creatinine (0.6-1.0) mg/dL Est Cr Clr Drug Dosing mL/min Estimated GFR (MDRD) ml/min Glucose (74-106) mg/dL Calcium (8.5-10.1) mg/dL Phosphorus (2.6-4.7) mg/dL Magnesium (1.8-2.4) mg/dL Total Bilirubin (0.2-1.0) mg/dL AST (15-37) IU/L ALT (14-63) IU/L Alkaline Phosphatase (46-116) U/L Troponin I < 0.050 (0.000-0.056) ng/mL B-Natriuretic Peptide 437 H (<100) PG/ML Total Protein (6.4-8.2) g/dL Albumin (3.4-5.0) g/dL Globulin (2.6-4.0) g/dL Albumin/Globulin Ratio (0.9-1.6) Urine Color Urine Appearance Urine pH (5.0-8.0) Ur Specific [place] (1.001-1.035) Urine Protein (NEGATIVE) mg/dL Urine Glucose (UA) (NEGATIVE) mg/dL Urine Ketones (NEGATIVE) mg/dL Urine Occult Blood (NEGATIVE) Urine Nitrite (NEGATIVE) Urine Bilirubin (NEGATIVE) Urine Urobilinogen (<2.0) EU/dL Ur Leukocyte Esterase (NEGATIVE) 07/24/19 Range/Units 05:50 WBC (4.0-11.0) K/uL RBC (4.30-5.90) M/uL Hgb (12.0-16.0) g/dL Hct (36.0-46.0) % MCV (80.0-98.0) fL MCH (27.0-32.0) pg MCHC (31.0-37.0) g/dL RDW Std Deviation (28.0-62.0) fl RDW Coeff of Anne (11.0-15.0) % Plt Count (150-400) K/uL MPV (7.40-12.00) fL Neut % (Auto) (48.0-80.0) % Lymph % (Auto) (16.0-40.0) % [place] % (Auto) (0.0-15.0) % Eos % (Auto) (0.0-7.0) % Baso % (Auto) (0.0-1.5) % Neut # (Auto) (1.4-5.7) K/uL Lymph # (Auto) (0.6-2.4) K/uL [place] # (Auto) (0.0-0.8) K/uL Eos # (Auto) (0.0-0.7) K/uL Baso # (Auto) (0.0-0.1) K/uL Nucleated RBC % /100WBC Nucleated RBCs # K/uL INR Sodium 132 L (136-145) mmol/L Potassium 4.0 (3.5-5.1) mmol/L Chloride 95 L (98-107) mmol/L Carbon Dioxide 24.3 (21.0-32.0) mmol/L BUN 22 H (7.0-18.0) mg/dL Creatinine 1.3 H (0.6-1.0) mg/dL Est Cr Clr Drug Dosing 34.16 mL/min Estimated GFR (MDRD) 40.0 ml/min Glucose 176 H (74-106) mg/dL Calcium 9.1 (8.5-10.1) mg/dL Phosphorus 4.0 (2.6-4.7) mg/dL Magnesium 1.9 (1.8-2.4) mg/dL Total Bilirubin 0.7 (0.2-1.0) mg/dL AST 28 (15-37) IU/L ALT 29 (14-63) IU/L Alkaline Phosphatase 76 (46-116) U/L Troponin I (0.000-0.056) ng/mL B-Natriuretic Peptide (<100) PG/ML Total Protein 6.6 (6.4-8.2) g/dL Albumin 3.5 (3.4-5.0) g/dL Globulin 3.1 (2.6-4.0) g/dL Albumin/Globulin Ratio 1.1 (0.9-1.6) Urine Color Urine Appearance Urine pH (5.0-8.0) Ur Specific [place] (1.001-1.035) Urine Protein (NEGATIVE) mg/dL Urine Glucose (UA) (NEGATIVE) mg/dL Urine Ketones (NEGATIVE) mg/dL Urine Occult Blood (NEGATIVE) Urine Nitrite (NEGATIVE) Urine Bilirubin (NEGATIVE) Urine Urobilinogen (<2.0) EU/dL Ur Leukocyte Esterase (NEGATIVE) Result Diagrams: 07/24/19 05:50 07/24/19 05:50 [facility] Results Last 24 hrs: Microbiology 07/23/19 14:13 Influenza Type A Antigen Screen - Final Nasopharyngeal Swab NEGATIVE INFLUENZA A VIRUS AG REFERENCE RANGE: NEGATIVE Influenza Type B Antigen Screen - Final NEGATIVE INFLUENZA B VIRUS AG REFERENCE RANGE: NEGATIVE Sepsis Event Note - Focused Exam Vital Signs: Vital Signs Temp Pulse Pulse Resp BP BP Pulse Ox 07/24/19 11:02 37.0 C 104 H 18 118/79 95 07/24/19 10:59 104 H 118/79 07/24/19 07:27 36.9 C 88 20 108/74 93 L 07/24/19 03:34 36.6 C 90 18 112/72 96 07/24/19 00:00 37.9 C 115 H 20 129/91 H 96 07/23/19 23:46 116 H 125/91 H Date Exam was Performed: 07/24/19 Time Exam was Performed: 11:30 - Problem List (1) Afib SNOMED Code(s): 71770844 ICD Code: I48.91 - UNSPECIFIED ATRIAL FIBRILLATION Status: Acute Current Visit: Yes (2) COPD exacerbation SNOMED Code(s): 713817077 ICD Code: J44.1 - CHRONIC OBSTRUCTIVE PULMONARY DISEASE W (ACUTE) EXACERBATION Status: Acute Current Visit: Yes Problem List Initiated/Reviewed/Updated: Yes Orders Last 24hrs: Active Orders 24 hr Category Date Time Status Admission Status [Patient Status] [ADT] Stat ADT 07/23/19 17:06 Active RT Aerosol Therapy [RC] ASDIRECTED Care 07/23/19 14:21 Active RT Aerosol Therapy [RC] ASDIRECTED Care 07/23/19 17:55 Active Telemetry Monitoring [Cardiac Monitoring] [RC] Q8H Care 07/23/19 22:40 Active Up With Assistance [RC] ASDIRECTED Care 07/23/19 17:29 Active Fluid Restriction [DIET] Diet 07/24/19 Lunch Active Heart Healthy Diet [DIET] Diet 07/24/19 Breakfast Active CV Arterial Duplex Legs Bi [US] Routine Exams 07/24/19 09:00 Ordered Albuterol/Ipratropium [DuoNeb 3.0-0.5 MG/3 ML] Med 07/23/19 18:00 Active 3 ml NEB Q4HRRT Apixaban [Eliquis] Med 07/24/19 09:00 Active 5 mg PO DAILY Diltiazem Med 07/23/19 23:17 Active 20 mg IVPUSH Q4H PRN Diltiazem [Cardizem CD] Med 07/24/19 11:00 Active 240 mg PO DAILY Doxycycline [Vibramycin] Med 07/23/19 23:15 Active 100 mg PO BID Fluticasone Propionate [Flonase] Med 07/23/19 23:30 Active 0 gm NASBOTH DAILY Furosemide [Lasix] Med 07/24/19 09:00 Active 40 mg PO DAILY Levothyroxine Med 07/24/19 07:30 Active 112 mcg PO ACBREAKFAST Montelukast [Singulair] Med 07/24/19 21:00 Active 10 mg PO BEDTIME Pantoprazole [ProTONIX] Med 07/24/19 07:30 Active 40 mg PO ACBREAKFAST Rosuvastatin [Crestor] Med 07/24/19 09:00 Active 20 mg PO DAILY Sodium Chloride 0.9% [Normal Saline] 500 ml Med 07/23/19 15:00 Active IV .BOLUS methylPREDNISolone Sod Succ [Solu-MEDROL] Med 07/23/19 22:00 Active 40 mg IV Q8HR Code Status [Resuscitation Status] Routine Resus Stat 07/23/19 17:28 Ordered Medication Orders Albuterol/Ipratropium (Duoneb 3.0-0.5 Mg/3 Ml) 3 ml NEB Q4HRRT [facility] Last Admin: 07/24/19 09:43 Dose: 3 ml Admin: 07/24/19 06:15 Dose: 3 ml Admin: 07/24/19 01:45 Dose: 3 ml Admin: 07/23/19 21:10 Dose: 3 ml Admin: 07/23/19 18:10 Dose: 3 ml Apixaban (Eliquis) 5 mg PO DAILY [facility] Last Admin: 07/24/19 08:17 Dose: 5 mg Diltiazem HCl (Diltiazem) 20 mg IVPUSH Q4H PRN PRN Reason: Tachycardia Last Admin: 07/24/19 02:57 Dose: 20 mg Diltiazem HCl (Cardizem Cd) 240 mg PO DAILY [facility] Last Admin: 07/24/19 10:59 Dose: 240 mg Doxycycline Hyclate (Vibramycin) 100 mg PO BID [facility] Last Admin: 07/24/19 08:18 Dose: 100 mg Admin: 07/23/19 23:45 Dose: 100 mg Fluticasone Propionate (Flonase) 0 gm NASBOTH DAILY ANGE Last Admin: 07/24/19 08:19 Dose: 1 spray Admin: 07/23/19 23:45 Dose: 1 spray Furosemide (Lasix) 40 mg PO DAILY [facility] Last Admin: 07/24/19 08:17 Dose: 40 mg Sodium Chloride (Normal Saline) 500 mls @ 500 drops/hr IV .BOLUS ANGE Last Admin: 07/23/19 14:59 Dose: 500 drops/hr Levothyroxine Sodium (Levothyroxine) 112 mcg PO ACBREAKFAST ANGE Last Admin: 07/24/19 06:33 Dose: 112 mcg Methylprednisolone Sodium Succinate (Solu-Medrol) 40 mg IV Q8HR ANGE Last Admin: 07/24/19 05:04 Dose: 40 mg Admin: 07/23/19 21:20 Dose: 40 mg Montelukast Sodium (Singulair) 10 mg PO BEDTIME [facility] Pantoprazole Sodium (Protonix) 40 mg PO ACBREAKFAST [facility] Last Admin: 07/24/19 06:33 Dose: 40 mg Rosuvastatin Calcium (Crestor) 20 mg PO DAILY [facility] Last Admin: 07/24/19 08:17 Dose: 20 mg Assessment/Plan Comment:: I performed a history and physical exam of the patient and discussed management with resident. I have reviewed the residents note and agree with documented findings and plan unless otherwise specified in my note.
[2019-07-23] MEDS ORDERED: Diltiazem 180 MG Cap.CD PO SCH (21:00)
[2019-07-23] MEDS: methylPREDNISolone Sodium Succinate 40 MG/1 ML SDV IV SCH (21:20)
[2019-07-23] MEDS ORDERED: Diltiazem 25 MG/5 ML SDV IVPUSH ONE (21:33)
[2019-07-23] MEDS ORDERED: Furosemide 20 MG/2 ML VIAL IVPUSH ONE (21:33)
[2019-07-23] MEDS ORDERED: LORazepam 0.5 MG Tab PO PRN (21:57)
[2019-07-23] MEDS ORDERED: Diltiazem 25 MG/5 ML SDV IVPUSH PRN (23:17)
[2019-07-23] MEDS ORDERED: Metoprolol Tartrate 5 MG/5 ML SDV IVPUSH ONE (23:19)
[2019-07-23] MEDS ORDERED: traMADol 50 MG Tab PO ONE (23:22)
[2019-07-23] MEDS ORDERED: LORazepam 1 MG Tab PO ONE (23:29)
[2019-07-23] MEDS: Fluticasone Propionate Nasal Spray 16 GM Bottle NASBOTH SCH (23:45)
[2019-07-23] MEDS: Doxycycline 100 MG Cap PO SCH (23:45)
[2019-07-24] MEDS: Albuterol/Ipratropium 3.0-0.5 MG/3 ML Neb Soln NEB SCH ×3 (01:45→09:43)
[2019-07-24] MEDS ORDERED: Ketorolac 15 MG/ML SDV IVPUSH ONE (04:53)
[2019-07-24] MEDS: methylPREDNISolone Sodium Succinate 40 MG/1 ML SDV IV SCH ×2 (05:04→21:52)
[2019-07-24] MEDS: Pantoprazole 40 MG Tab.CR PO SCH (06:33)
[2019-07-24] MEDS: Levothyroxine 112 MCG Tab PO SCH (06:33)
[2019-07-24 06:44] LABS: CARBON DIOXIDE,CO2 24.3 mmol/L (21.0-32.0)
[2019-07-24] MEDS: Rosuvastatin 10 MG Tab PO SCH (08:17)
[2019-07-24] MEDS: Furosemide 40 MG Tab PO SCH (08:17)
[2019-07-24] MEDS: Apixaban 5 MG Tab PO SCH (08:17)
[2019-07-24] MEDS: Doxycycline 100 MG Cap PO SCH ×2 (08:18→21:50)
[2019-07-24] MEDS: Fluticasone Propionate Nasal Spray 16 GM Bottle NASBOTH SCH (08:19)
[2019-07-24] MEDS ORDERED: Sodium Chloride 0.9% 500 ML IV ONE (10:21)
[2019-07-24] MEDS: Diltiazem 120 MG Cap.CD PO SCH (10:59)
[2019-07-24] MEDS ORDERED: Albuterol/Ipratropium 3.0-0.5 MG/3 ML Neb Soln NEB PRN (12:01)
--- NOTE | 2019-07-24 12:11 | PCM.PN ---
- General Info Date of Service: 07/24/19 Subjective Update: Bedside: Patient endorses some improvement as far as her breathing is concerned ; mentions she is feeling tired because she did not find a suitable position to sleep last night secondary to her chronic back pain; however is not having any worsening of her symptoms today. - Review of Systems General: Denies: Fever, Weakness HEENT: Reports: No Symptoms Pulmonary: Reports: Shortness of Breath, Cough, Sputum. Denies: Pleuritic Chest Pain Cardiovascular: Reports: Dyspnea on Exertion, Edema. Denies: Chest Pain, Palpitations Gastrointestinal: Denies: Abdominal Pain, Constipation, Decreased Appetite, Diarrhea, Nausea, Vomiting Genitourinary: Reports: No Symptoms Musculoskeletal: Reports: Back Pain, Joint Pain Neurological: Denies: Confusion, Dizziness, Headache Psychiatric: Reports: No Symptoms - Patient Data Vitals - Most Recent: Last Vital Signs Temp 98.6 F 07/24/19 11:02 Pulse 104 H 07/24/19 11:02 Resp 18 07/24/19 11:02 BP 118/79 07/24/19 11:02 Pulse Ox 95 07/24/19 11:02 Weight - Most Recent: 224 lb 13.944 oz I&O - Last 24 Hours: Intake & Output 07/23/19 07/24/19 07/24/19 22:59 06:59 14:59 Intake Total 1500 Output Total 2350 Balance -850 Lab Results Last 24 Hours: Laboratory Results - last 24 hr 07/23/19 07/23/19 07/23/19 Range/Units 14:05 14:05 14:05 WBC 7.40 (4.0-11.0) K/uL RBC 3.95 L (4.30-5.90) M/uL Hgb 12.4 (12.0-16.0) g/dL Hct 39.8 (36.0-46.0) % MCV 100.8 H (80.0-98.0) fL MCH 31.4 (27.0-32.0) pg MCHC 31.2 (31.0-37.0) g/dL RDW Std Deviation 61.5 (28.0-62.0) fl RDW Coeff of Anne 17 H (11.0-15.0) % Plt Count 151 (150-400) K/uL MPV 12.50 H (7.40-12.00) fL Neut % (Auto) 86.8 H (48.0-80.0) % Lymph % (Auto) 9.5 L (16.0-40.0) % [place] % (Auto) 3.5 (0.0-15.0) % Eos % (Auto) 0.1 (0.0-7.0) % Baso % (Auto) 0.1 (0.0-1.5) % Neut # (Auto) 6.4 H (1.4-5.7) K/uL Lymph # (Auto) 0.7 (0.6-2.4) K/uL [place] # (Auto) 0.3 (0.0-0.8) K/uL Eos # (Auto) 0.0 (0.0-0.7) K/uL Baso # (Auto) 0.0 (0.0-0.1) K/uL Nucleated RBC % 0.0 /100WBC Nucleated RBCs # 0 K/uL INR 1.30 Sodium 132 L (136-145) mmol/L Potassium 3.5 (3.5-5.1) mmol/L Chloride 95 L (98-107) mmol/L Carbon Dioxide 24.9 (21.0-32.0) mmol/L BUN 20 H (7.0-18.0) mg/dL Creatinine 1.1 H (0.6-1.0) mg/dL Est Cr Clr Drug Dosing 40.38 mL/min Estimated GFR (MDRD) 48.6 ml/min Glucose 148 H (74-106) mg/dL Calcium 8.6 (8.5-10.1) mg/dL Phosphorus (2.6-4.7) mg/dL Magnesium (1.8-2.4) mg/dL Total Bilirubin 0.7 (0.2-1.0) mg/dL AST 35 (15-37) IU/L ALT 24 (14-63) IU/L Alkaline Phosphatase 88 (46-116) U/L Troponin I < 0.050 (0.000-0.056) ng/mL B-Natriuretic Peptide (<100) PG/ML Total Protein 6.6 (6.4-8.2) g/dL Albumin 3.6 (3.4-5.0) g/dL Globulin 3.0 (2.6-4.0) g/dL Albumin/Globulin Ratio 1.2 (0.9-1.6) Urine Color Urine Appearance Urine pH (5.0-8.0) Ur Specific [place] (1.001-1.035) Urine Protein (NEGATIVE) mg/dL Urine Glucose (UA) (NEGATIVE) mg/dL Urine Ketones (NEGATIVE) mg/dL Urine Occult Blood (NEGATIVE) Urine Nitrite (NEGATIVE) Urine Bilirubin (NEGATIVE) Urine Urobilinogen (<2.0) EU/dL Ur Leukocyte Esterase (NEGATIVE) 07/23/19 07/23/19 07/23/19 Range/Units 14:05 14:05 14:07 WBC (4.0-11.0) K/uL RBC (4.30-5.90) M/uL Hgb (12.0-16.0) g/dL Hct (36.0-46.0) % MCV (80.0-98.0) fL MCH (27.0-32.0) pg MCHC (31.0-37.0) g/dL RDW Std Deviation (28.0-62.0) fl RDW Coeff of Anne (11.0-15.0) % Plt Count (150-400) K/uL MPV (7.40-12.00) fL Neut % (Auto) (48.0-80.0) % Lymph % (Auto) (16.0-40.0) % [place] % (Auto) (0.0-15.0) % Eos % (Auto) (0.0-7.0) % Baso % (Auto) (0.0-1.5) % Neut # (Auto) (1.4-5.7) K/uL Lymph # (Auto) (0.6-2.4) K/uL [place] # (Auto) (0.0-0.8) K/uL Eos # (Auto) (0.0-0.7) K/uL Baso # (Auto) (0.0-0.1) K/uL Nucleated RBC % /100WBC Nucleated RBCs # K/uL INR Sodium (136-145) mmol/L Potassium (3.5-5.1) mmol/L Chloride (98-107) mmol/L Carbon Dioxide (21.0-32.0) mmol/L BUN (7.0-18.0) mg/dL Creatinine (0.6-1.0) mg/dL Est Cr Clr Drug Dosing mL/min Estimated GFR (MDRD) ml/min Glucose (74-106) mg/dL Calcium (8.5-10.1) mg/dL Phosphorus (2.6-4.7) mg/dL Magnesium 1.8 (1.8-2.4) mg/dL Total Bilirubin (0.2-1.0) mg/dL AST (15-37) IU/L ALT (14-63) IU/L Alkaline Phosphatase (46-116) U/L Troponin I (0.000-0.056) ng/mL B-Natriuretic Peptide 364 H (<100) PG/ML Total Protein (6.4-8.2) g/dL Albumin (3.4-5.0) g/dL Globulin (2.6-4.0) g/dL Albumin/Globulin Ratio (0.9-1.6) Urine Color YELLOW Urine Appearance CLEAR Urine pH 6.0 (5.0-8.0) Ur Specific [place] <= 1.005 (1.001-1.035) Urine Protein NEGATIVE (NEGATIVE) mg/dL Urine Glucose (UA) NEGATIVE (NEGATIVE) mg/dL Urine Ketones NEGATIVE (NEGATIVE) mg/dL Urine Occult Blood NEGATIVE (NEGATIVE) Urine Nitrite NEGATIVE (NEGATIVE) Urine Bilirubin NEGATIVE (NEGATIVE) Urine Urobilinogen 0.2 (<2.0) EU/dL Ur Leukocyte Esterase NEGATIVE (NEGATIVE) 07/23/19 07/24/19 07/24/19 Range/Units 22:05 05:50 05:50 WBC 6.73 (4.0-11.0) K/uL RBC 3.78 L (4.30-5.90) M/uL Hgb 11.7 L (12.0-16.0) g/dL Hct 37.5 (36.0-46.0) % MCV 99.2 H (80.0-98.0) fL MCH 31.0 (27.0-32.0) pg MCHC 31.2 (31.0-37.0) g/dL RDW Std Deviation 60.2 (28.0-62.0) fl RDW Coeff of Anne 17 H (11.0-15.0) % Plt Count 147 L (150-400) K/uL MPV 12.00 (7.40-12.00) fL Neut % (Auto) 89.0 H (48.0-80.0) % Lymph % (Auto) 7.7 L (16.0-40.0) % [place] % (Auto) 3.3 (0.0-15.0) % Eos % (Auto) 0.0 (0.0-7.0) % Baso % (Auto) 0.0 (0.0-1.5) % Neut # (Auto) 6.0 H (1.4-5.7) K/uL Lymph # (Auto) 0.5 L (0.6-2.4) K/uL [place] # (Auto) 0.2 (0.0-0.8) K/uL Eos # (Auto) 0.0 (0.0-0.7) K/uL Baso # (Auto) 0.0 (0.0-0.1) K/uL Nucleated RBC % 0.0 /100WBC Nucleated RBCs # 0 K/uL INR Sodium (136-145) mmol/L Potassium (3.5-5.1) mmol/L Chloride (98-107) mmol/L Carbon Dioxide (21.0-32.0) mmol/L BUN (7.0-18.0) mg/dL Creatinine (0.6-1.0) mg/dL Est Cr Clr Drug Dosing mL/min Estimated GFR (MDRD) ml/min Glucose (74-106) mg/dL Calcium (8.5-10.1) mg/dL Phosphorus (2.6-4.7) mg/dL Magnesium (1.8-2.4) mg/dL Total Bilirubin (0.2-1.0) mg/dL AST (15-37) IU/L ALT (14-63) IU/L Alkaline Phosphatase (46-116) U/L Troponin I < 0.050 (0.000-0.056) ng/mL B-Natriuretic Peptide 437 H (<100) PG/ML Total Protein (6.4-8.2) g/dL Albumin (3.4-5.0) g/dL Globulin (2.6-4.0) g/dL Albumin/Globulin Ratio (0.9-1.6) Urine Color Urine Appearance Urine pH (5.0-8.0) Ur Specific [place] (1.001-1.035) Urine Protein (NEGATIVE) mg/dL Urine Glucose (UA) (NEGATIVE) mg/dL Urine Ketones (NEGATIVE) mg/dL Urine Occult Blood (NEGATIVE) Urine Nitrite (NEGATIVE) Urine Bilirubin (NEGATIVE) Urine Urobilinogen (<2.0) EU/dL Ur Leukocyte Esterase (NEGATIVE) 07/24/19 Range/Units 05:50 WBC (4.0-11.0) K/uL RBC (4.30-5.90) M/uL Hgb (12.0-16.0) g/dL Hct (36.0-46.0) % MCV (80.0-98.0) fL MCH (27.0-32.0) pg MCHC (31.0-37.0) g/dL RDW Std Deviation (28.0-62.0) fl RDW Coeff of Anne (11.0-15.0) % Plt Count (150-400) K/uL MPV (7.40-12.00) fL Neut % (Auto) (48.0-80.0) % Lymph % (Auto) (16.0-40.0) % [place] % (Auto) (0.0-15.0) % Eos % (Auto) (0.0-7.0) % Baso % (Auto) (0.0-1.5) % Neut # (Auto) (1.4-5.7) K/uL Lymph # (Auto) (0.6-2.4) K/uL [place] # (Auto) (0.0-0.8) K/uL Eos # (Auto) (0.0-0.7) K/uL Baso # (Auto) (0.0-0.1) K/uL Nucleated RBC % /100WBC Nucleated RBCs # K/uL INR Sodium 132 L (136-145) mmol/L Potassium 4.0 (3.5-5.1) mmol/L Chloride 95 L (98-107) mmol/L Carbon Dioxide 24.3 (21.0-32.0) mmol/L BUN 22 H (7.0-18.0) mg/dL Creatinine 1.3 H (0.6-1.0) mg/dL Est Cr Clr Drug Dosing 34.16 mL/min Estimated GFR (MDRD) 40.0 ml/min Glucose 176 H (74-106) mg/dL Calcium 9.1 (8.5-10.1) mg/dL Phosphorus 4.0 (2.6-4.7) mg/dL Magnesium 1.9 (1.8-2.4) mg/dL Total Bilirubin 0.7 (0.2-1.0) mg/dL AST 28 (15-37) IU/L ALT 29 (14-63) IU/L Alkaline Phosphatase 76 (46-116) U/L Troponin I (0.000-0.056) ng/mL B-Natriuretic Peptide (<100) PG/ML Total Protein 6.6 (6.4-8.2) g/dL Albumin 3.5 (3.4-5.0) g/dL Globulin 3.1 (2.6-4.0) g/dL Albumin/Globulin Ratio 1.1 (0.9-1.6) Urine Color Urine Appearance Urine pH (5.0-8.0) Ur Specific [place] (1.001-1.035) Urine Protein (NEGATIVE) mg/dL Urine Glucose (UA) (NEGATIVE) mg/dL Urine Ketones (NEGATIVE) mg/dL Urine Occult Blood (NEGATIVE) Urine Nitrite (NEGATIVE) Urine Bilirubin (NEGATIVE) Urine Urobilinogen (<2.0) EU/dL Ur Leukocyte Esterase (NEGATIVE) [place] Results Last 24 Hours: Microbiology 07/23/19 14:13 Influenza Type A Antigen Screen - Final Nasopharyngeal Swab NEGATIVE INFLUENZA A VIRUS AG REFERENCE RANGE: NEGATIVE Influenza Type B Antigen Screen - Final NEGATIVE INFLUENZA B VIRUS AG REFERENCE RANGE: NEGATIVE Med Orders - Current: Current Medications Albuterol/Ipratropium (Duoneb 3.0-0.5 Mg/3 Ml) 3 ml NEB Q4HRRT PRN PRN Reason: Shortness of Breath Apixaban (Eliquis) 5 mg PO DAILY [facility] Last Admin: 07/24/19 08:17 Dose: 5 mg Diltiazem HCl (Diltiazem) 20 mg IVPUSH Q4H PRN PRN Reason: Tachycardia Last Admin: 07/24/19 02:57 Dose: 20 mg Diltiazem HCl (Cardizem Cd) 240 mg PO DAILY [facility] Last Admin: 07/24/19 10:59 Dose: 240 mg Doxycycline Hyclate (Vibramycin) 100 mg PO BID [facility] Last Admin: 07/24/19 08:18 Dose: 100 mg Fluticasone Propionate (Flonase) 0 gm NASBOTH DAILY [facility] Last Admin: 07/24/19 08:19 Dose: 1 spray Furosemide (Lasix) 40 mg PO DAILY [facility] Last Admin: 07/24/19 08:17 Dose: 40 mg Sodium Chloride (Normal Saline) 500 mls @ 500 drops/hr IV .BOLUS [facility] Last Admin: 07/23/19 14:59 Dose: 500 drops/hr Levothyroxine Sodium (Levothyroxine) 112 mcg PO ACBREAKFAST [facility] Last Admin: 07/24/19 06:33 Dose: 112 mcg Methylprednisolone Sodium Succinate (Solu-Medrol) 40 mg IV Q12HR [facility] Montelukast Sodium (Singulair) 10 mg PO BEDTIME [facility] Pantoprazole Sodium (Protonix) 40 mg PO ACBREAKFAST [facility] Last Admin: 07/24/19 06:33 Dose: 40 mg Rosuvastatin Calcium (Crestor) 20 mg PO DAILY [facility] Last Admin: 07/24/19 08:17 Dose: 20 mg Discontinued Medications Albuterol/Ipratropium (Duoneb 3.0-0.5 Mg/3 Ml) 3 ml NEB ONETIME ONE Stop: 07/23/19 14:22 Last Admin: 07/23/19 14:32 Dose: 3 ml Albuterol/Ipratropium (Duoneb 3.0-0.5 Mg/3 Ml) 3 ml NEB Q4HRRT [facility] Last Admin: 07/24/19 09:43 Dose: 3 ml Diltiazem HCl (Cardizem Cd) 180 mg PO BEDTIME [facility] Last Admin: 07/23/19 21:20 Dose: 180 mg Diltiazem HCl (Diltiazem) 20 mg IVPUSH ONETIME ONE Stop: 07/23/19 21:34 Last Admin: 07/23/19 22:03 Dose: 20 mg Furosemide (Lasix) 20 mg IVPUSH ONETIME ONE Stop: 07/23/19 21:34 Last Admin: 07/23/19 22:03 Dose: 20 mg Magnesium Sulfate 2 gm/ Premix 50 mls @ 50 mls/hr IV ONETIME ONE Stop: 07/23/19 16:25 Last Admin: 07/23/19 15:52 Dose: Not Given Magnesium Sulfate 1 gm/ Sodium (Chloride) 52 mls @ 104 mls/hr IV ONETIME ONE Stop: 07/23/19 16:14 Last Admin: 07/23/19 15:49 Dose: 104 mls/hr Sodium Chloride (Normal Saline) 500 mls @ 999 mls/hr IV STAT ONE Stop: 07/24/19 10:51 Last Admin: 07/24/19 11:31 Dose: 999 mls/hr Ketorolac Tromethamine (Toradol) 15 mg IVPUSH ONETIME ONE Stop: 07/24/19 04:54 Last Admin: 07/24/19 05:03 Dose: 15 mg Lorazepam (Ativan) 0.5 mg PO BID PRN PRN Reason: Anxiety Lorazepam (Ativan) 1 mg PO ONETIME ONE Stop: 07/23/19 23:30 Last Admin: 07/23/19 23:45 Dose: 1 mg Methylprednisolone Sodium Succinate (Solu-Medrol) 125 mg IV ONETIME ONE Stop: 07/23/19 14:46 Last Admin: 07/23/19 14:59 Dose: 125 mg Methylprednisolone Sodium Succinate (Solu-Medrol) 40 mg IV Q8HR [facility] Last Admin: 07/24/19 05:04 Dose: 40 mg Metoprolol Tartrate (Lopressor) 5 mg IVPUSH ONETIME ONE Stop: 07/23/19 23:20 Last Admin: 07/23/19 23:46 Dose: 5 mg Non-Formulary Medication (Diltiazem Hcl [Diltiazem 24hr Er]) 180 mg PO BEDTIME [facility]GE Tramadol HCl (Ultram) 50 mg PO ONETIME ONE Stop: 07/23/19 23:23 Last Admin: 07/24/19 00:06 Dose: Not Given - Exam Quality Assessment: Supplemental Oxygen General: Alert, Oriented, Cooperative HEENT: Pupils Equal, EOMI, Mucous Membr. Moist/[place] Neck: Supple Lungs: Other (interval improvement: moving air more than on arrival; prolonged expiratory phase especially in upper lung [place] but no wheeszing this AM) Cardiovascular: Regular Rate, Tachycardia GI/Abdominal Exam: Soft, Non-Tender Extremities: Other (+1 pitting edema; some anterior gary tenderness; -colette sign ) Neurological: No New Focal Deficit, Sensation Intact Psy/Mental Status: Alert, Normal Affect, Normal Mood Sepsis Event Note - Evaluation Sepsis Screening Result: No Definite Risk - Focused Exam Vital Signs: Vital Signs Temp Pulse Pulse Resp BP BP Pulse Ox 07/24/19 11:02 98.6 F 104 H 18 118/79 95 07/24/19 10:59 104 H 118/79 07/24/19 07:27 98.4 F 88 20 108/74 93 L 07/24/19 03:34 97.8 F 90 18 112/72 96 Date Exam was Performed: 07/24/19 Time Exam was Performed: 13:57 - Problem List Review Problem List Initiated/Reviewed/Updated: Yes - My Orders Last 24 Hours: My Active Orders 07/23/19 17:28 Code Status [Resuscitation Status] Routine 07/23/19 17:29 Up With Assistance [RC] ASDIRECTED 07/23/19 17:55 RT Aerosol Therapy [RC] ASDIRECTED 07/24/19 11:00 Diltiazem [Cardizem CD] 240 mg PO DAILY 07/24/19 12:01 Albuterol/Ipratropium [DuoNeb 3.0-0.5 MG/3 ML] 3 ml NEB Q4HRRT PRN 07/24/19 21:00 methylPREDNISolone Sod Succ [Solu-MEDROL] 40 mg IV Q12HR 07/24/19 Breakfast Heart Healthy Diet [DIET] 07/24/19 Lunch Fluid Restriction [DIET] - Assessment Assessment:: Assessment 1. Acute hypoxic respiratory failure secondary to COPD exacerbation:improving 2. History of atrial fibrillation on Eliquis 3. Hyponatremia:stable 4. Elevated BNP 5. Past medical history: COPD, A. fib, abdominal aortic aneurysm, DDD, lumbar osteoarthritis, hypothyroidism, hypercholesterolemia, and morbid obesity Plan. Admit to observation/full code/heart healthy diet/activity: Up with assistance/ DVT prophylaxis; Eliquis 5 mg/GI prophylaxis: Pantoprazole 40 1. Hypoxia secondary to COPD exacerbation: given IV methylprednisolone in emergency department; continue with Solu-Medrol 40 every 12 hours; DuoNebs every 4 hours PRN now; oxygen via via nasal cannula. Qualifies for Home O2 on discharge Resume Lasix; BMP from April 2019 showed ejection fraction of 60 to 65%. No overt heart failure clinically speaking. Continue all other home medications including Eliquis 5 mg for patient's A. fib. Will hold other COPD medications including Spiriva. 6. Tachycardia: have increased pt. Diltiazem to 240 CD daily to help w. tachycardia; most likely worsened by COPD exacerbation; however; since new O2 requirements; may need to be on this dose indefinitely. Continue to monitor
[2019-07-24] MEDS ORDERED: Acetaminophen 500 MG Tab PO PRN (16:44)
[2019-07-24] MEDS: Naproxen 500 MG Tab PO PRN (16:58)
[2019-07-24] MEDS ORDERED: Acetaminophen 325 MG Tab PO PRN (18:11)
[2019-07-24] MEDS ORDERED: Ondansetron 4 MG Tab.DIS PO PRN (18:11)
[2019-07-24] MEDS ORDERED: DILTIAZEM HCL 180 MG PO SCH (21:00)
[2019-07-24] MEDS ORDERED: Montelukast 10 MG Tab PO SCH (21:00)
[2019-07-25] MEDS ORDERED: tiZANidine 4 MG Tab PO PRN (02:51)
[2019-07-25] MEDS ORDERED: LORazepam 0.5 MG Tab PO PRN (02:52)
[2019-07-25] MEDS: Naproxen 500 MG Tab PO PRN (04:42)
[2019-07-25] MEDS: Levothyroxine 112 MCG Tab PO SCH (06:48)
[2019-07-25] MEDS: Pantoprazole 40 MG Tab.CR PO SCH (06:48)
[2019-07-25 06:51] LABS: CARBON DIOXIDE,CO2 28.5 mmol/L (21.0-32.0); POTASSIUM,K 4.5 mmol/L (3.5-5.1)
[2019-07-25] MEDS: Furosemide 40 MG Tab PO SCH (08:01)
[2019-07-25] MEDS: Rosuvastatin 10 MG Tab PO SCH (08:01)
[2019-07-25] MEDS: Doxycycline 100 MG Cap PO SCH (08:01)
[2019-07-25] MEDS: Apixaban 5 MG Tab PO SCH (08:01)
[2019-07-25] MEDS: Fluticasone Propionate Nasal Spray 16 GM Bottle NASBOTH SCH (08:02)
[2019-07-25] MEDS: methylPREDNISolone Sodium Succinate 40 MG/1 ML SDV IV SCH (08:02)
[2019-07-25] MEDS: Diltiazem 120 MG Cap.CD PO SCH (08:30)
--- NOTE | 2019-07-25 09:53 | PCM.PN ---
- General Info Date of Service: 07/25/19 Admission Dx/Problem (Free Text): Admission Diagnosis/Problem Admission Diagnosis/Problem COPD, Moderate chronic obstructive pulmonary disease Subjective Update: Patient seen at bedside, no acute distress, breathing improved, will be using home o2, was bradycardic this am so , morning Cardizem was held. . - Review of Systems General: Denies: Fever, Weakness, Fatigue HEENT: Denies: Contact Lenses, Dysphasia Pulmonary: Denies: Shortness of Breath, Pleuritic Chest Pain, Cough Cardiovascular: Denies: Chest Pain, Palpitations, Dyspnea on Exertion Gastrointestinal: Denies: Abdominal Pain, Constipation, Decreased Appetite Genitourinary: Denies: Dysuria, Frequency, Burning - Patient Data Vitals - Most Recent: Last Vital Signs Temp 36.3 C 07/25/19 07:25 Pulse 66 07/25/19 08:30 Resp 18 07/25/19 07:25 BP 93/67 07/25/19 08:30 Pulse Ox 94 L 07/25/19 07:25 Weight - Most Recent: 104.78 kg I&O - Last 24 Hours: Intake & Output 07/24/19 07/25/19 07/25/19 22:59 06:59 14:59 Intake Total 2190 800 Output Total 1600 1675 Balance 590 -875 Lab Results Last 24 Hours: Laboratory Results - last 24 hr 07/25/19 07/25/19 Range/Units 05:45 05:45 WBC 10.34 (4.0-11.0) K/uL RBC 3.63 L (4.30-5.90) M/uL Hgb 11.5 L (12.0-16.0) g/dL Hct 36.1 (36.0-46.0) % MCV 99.4 H (80.0-98.0) fL MCH 31.7 (27.0-32.0) pg MCHC 31.9 (31.0-37.0) g/dL RDW Std Deviation 60.5 (28.0-62.0) fl RDW Coeff of Anne 17 H (11.0-15.0) % Plt Count 153 (150-400) K/uL MPV 12.30 H (7.40-12.00) fL Neut % (Auto) 91.4 H (48.0-80.0) % Lymph % (Auto) 4.4 L (16.0-40.0) % [place] % (Auto) 4.2 (0.0-15.0) % Eos % (Auto) 0.0 (0.0-7.0) % Baso % (Auto) 0.0 (0.0-1.5) % Neut # (Auto) 9.5 H (1.4-5.7) K/uL Lymph # (Auto) 0.5 L (0.6-2.4) K/uL [place] # (Auto) 0.4 (0.0-0.8) K/uL Eos # (Auto) 0.0 (0.0-0.7) K/uL Baso # (Auto) 0.0 (0.0-0.1) K/uL Nucleated RBC % 0.0 /100WBC Nucleated RBCs # 0 K/uL Sodium 133 L (136-145) mmol/L Potassium 4.5 (3.5-5.1) mmol/L Chloride 97 L (98-107) mmol/L Carbon Dioxide 28.5 (21.0-32.0) mmol/L BUN 30 H (7.0-18.0) mg/dL Creatinine 1.2 H (0.6-1.0) mg/dL Est Cr Clr Drug Dosing 37.01 mL/min Estimated GFR (MDRD) 43.9 ml/min Glucose 175 H (74-106) mg/dL Calcium 9.1 (8.5-10.1) mg/dL Total Bilirubin 0.5 (0.2-1.0) mg/dL AST 24 (15-37) IU/L ALT 27 (14-63) IU/L Alkaline Phosphatase 67 (46-116) U/L Total Protein 5.9 L (6.4-8.2) g/dL Albumin 3.2 L (3.4-5.0) g/dL Globulin 2.7 (2.6-4.0) g/dL Albumin/Globulin Ratio 1.2 (0.9-1.6) Med Orders - Current: Current Medications Albuterol/Ipratropium (Duoneb 3.0-0.5 Mg/3 Ml) 3 ml NEB Q4HRRT PRN PRN Reason: Shortness of Breath Apixaban (Eliquis) 5 mg PO DAILY [facility] Last Admin: 07/25/19 08:01 Dose: 5 mg Diltiazem HCl (Diltiazem) 20 mg IVPUSH Q4H PRN PRN Reason: Tachycardia Last Admin: 07/24/19 02:57 Dose: 20 mg Diltiazem HCl (Cardizem Cd) 240 mg PO DAILY [facility] Last Admin: 07/25/19 08:30 Dose: Not Given Doxycycline Hyclate (Vibramycin) 100 mg PO BID [facility] Last Admin: 07/25/19 08:01 Dose: 100 mg Fluticasone Propionate (Flonase) 0 gm NASBOTH DAILY [facility] Last Admin: 07/25/19 08:02 Dose: 1 spray Furosemide (Lasix) 40 mg PO DAILY [facility] Last Admin: 07/25/19 08:01 Dose: 40 mg Levothyroxine Sodium (Levothyroxine) 112 mcg PO ACBREAKFAST [facility] Last Admin: 07/25/19 06:48 Dose: 112 mcg Lorazepam (Ativan) 0.5 mg PO BID PRN PRN Reason: Anxiety Methylprednisolone Sodium Succinate (Solu-Medrol) 40 mg IV Q12HR [facility] Last Admin: 07/25/19 08:02 Dose: 40 mg Montelukast Sodium (Singulair) 10 mg PO BEDTIME [facility] Last Admin: 07/24/19 21:50 Dose: 10 mg Naproxen (Naprosyn) 500 mg PO Q12HR PRN PRN Reason: Pain Last Admin: 07/25/19 04:42 Dose: 500 mg Ondansetron HCl (Zofran Odt) 4 mg PO Q4H PRN PRN Reason: Nausea/Vomiting Pantoprazole Sodium (Protonix) 40 mg PO ACBREAKFAST [facility] Last Admin: 07/25/19 06:48 Dose: 40 mg Rosuvastatin Calcium (Crestor) 20 mg PO DAILY [facility] Last Admin: 07/25/19 08:01 Dose: 20 mg Tizanidine HCl (Zanaflex) 4 mg PO Q8H PRN PRN Reason: Pain Last Admin: 07/25/19 03:04 Dose: 4 mg Discontinued Medications Acetaminophen (Tylenol Extra Strength) 500 mg PO Q6H PRN PRN Reason: Pain Acetaminophen (Tylenol) 650 mg PO Q6H PRN PRN Reason: Headache Albuterol/Ipratropium (Duoneb 3.0-0.5 Mg/3 Ml) 3 ml NEB ONETIME ONE Stop: 07/23/19 14:22 Last Admin: 07/23/19 14:32 Dose: 3 ml Albuterol/Ipratropium (Duoneb 3.0-0.5 Mg/3 Ml) 3 ml NEB Q4HRRT [facility] Last Admin: 07/24/19 09:43 Dose: 3 ml Diltiazem HCl (Cardizem Cd) 180 mg PO BEDTIME [facility] Last Admin: 07/23/19 21:20 Dose: 180 mg Diltiazem HCl (Diltiazem) 20 mg IVPUSH ONETIME ONE Stop: 07/23/19 21:34 Last Admin: 07/23/19 22:03 Dose: 20 mg Furosemide (Lasix) 20 mg IVPUSH ONETIME ONE Stop: 07/23/19 21:34 Last Admin: 07/23/19 22:03 Dose: 20 mg Sodium Chloride (Normal Saline) 500 mls @ 500 drops/hr IV .BOLUS [facility] Last Admin: 07/23/19 14:59 Dose: 500 drops/hr Magnesium Sulfate 2 gm/ Premix 50 mls @ 50 mls/hr IV ONETIME ONE Stop: 07/23/19 16:25 Last Admin: 07/23/19 15:52 Dose: Not Given Magnesium Sulfate 1 gm/ Sodium (Chloride) 52 mls @ 104 mls/hr IV ONETIME ONE Stop: 07/23/19 16:14 Last Admin: 07/23/19 15:49 Dose: 104 mls/hr Sodium Chloride (Normal Saline) 500 mls @ 999 mls/hr IV STAT ONE Stop: 07/24/19 10:51 Last Admin: 07/24/19 11:31 Dose: 999 mls/hr Ketorolac Tromethamine (Toradol) 15 mg IVPUSH ONETIME ONE Stop: 07/24/19 04:54 Last Admin: 07/24/19 05:03 Dose: 15 mg Lorazepam (Ativan) 0.5 mg PO BID PRN PRN Reason: Anxiety Lorazepam (Ativan) 1 mg PO ONETIME ONE Stop: 07/23/19 23:30 Last Admin: 07/23/19 23:45 Dose: 1 mg Methylprednisolone Sodium Succinate (Solu-Medrol) 125 mg IV ONETIME ONE Stop: 07/23/19 14:46 Last Admin: 07/23/19 14:59 Dose: 125 mg Methylprednisolone Sodium Succinate (Solu-Medrol) 40 mg IV Q8HR ANGE Last Admin: 07/24/19 05:04 Dose: 40 mg Metoprolol Tartrate (Lopressor) 5 mg IVPUSH ONETIME ONE Stop: 07/23/19 23:20 Last Admin: 07/23/19 23:46 Dose: 5 mg Non-Formulary Medication (Diltiazem Hcl [Diltiazem 24hr Er]) 180 mg PO BEDTIME ANGE Tramadol HCl (Ultram) 50 mg PO ONETIME ONE Stop: 07/23/19 23:23 Last Admin: 07/24/19 00:06 Dose: Not Given - Exam General: Alert, Oriented, Cooperative Neck: Supple, Trachea Midline Lungs: Clear to Auscultation, Normal Respiratory Effort Cardiovascular: Regular Rate, Irregular Rhythm GI/Abdominal Exam: Normal Bowel Sounds, Soft, Non-Tender Sepsis Event Note - Evaluation Sepsis Screening Result: No Definite Risk - Focused Exam Vital Signs: Vital Signs Temp Pulse Pulse Resp BP BP Pulse Ox 07/25/19 08:30 66 93/67 07/25/19 07:25 36.3 C 86 18 109/76 94 L 07/25/19 04:00 36.3 C 84 18 130/87 96 07/25/19 00:00 36.1 C 95 16 108/70 94 L Date Exam was Performed: 07/25/19 Time Exam was Performed: 09:50 - Problem List & Annotations (1) Afib SNOMED Code(s): 40445122 Code(s): I48.91 - UNSPECIFIED ATRIAL FIBRILLATION Status: Acute Current Visit: Yes (2) COPD exacerbation SNOMED Code(s): 671407687 Code(s): J44.1 - CHRONIC OBSTRUCTIVE PULMONARY DISEASE W (ACUTE) EXACERBATION Status: Acute Current Visit: Yes - My Orders Last 24 Hours: My Active Orders 07/24/19 09:00 CV Arterial Duplex Legs Bi [US] Routine Apixaban [Eliquis] 5 mg PO DAILY Furosemide [Lasix] 40 mg PO DAILY Rosuvastatin [Crestor] 20 mg PO DAILY 07/24/19 21:00 Montelukast [Singulair] 10 mg PO BEDTIME 07/25/19 02:51 tiZANidine [Zanaflex] 4 mg PO Q8H PRN 07/25/19 02:52 LORazepam [Ativan] 0.5 mg PO BID PRN - Assessment Assessment:: Assessment 1. Acute hypoxic respiratory failure secondary to COPD exacerbation:improving 2. History of atrial fibrillation on Eliquis 3. Hyponatremia:stable 4. Elevated BNP 5. Past medical history: COPD, A. fib, abdominal aortic aneurysm, DDD, lumbar osteoarthritis, hypothyroidism, hypercholesterolemia, and morbid obesity Plan. Admit to observation/full code/heart healthy diet/activity: Up with assistance/ DVT prophylaxis; Eliquis 5 mg/GI prophylaxis: Pantoprazole 40 1. Hypoxia secondary to COPD exacerbation: given IV methylprednisolone in emergency department; continue with Solu-Medrol 40 every 12 hours; DuoNebs every 4 hours PRN now; oxygen via via nasal cannula. Qualifies for Home O2 on discharge Resume Lasix; BMP from April 2019 showed ejection fraction of 60 to 65%. No overt heart failure clinically speaking. Continue all other home medications including Eliquis 5 mg for patient's A. fib. Will hold other COPD medications including Spiriva. 6. Tachycardia: have increased pt. Diltiazem to 240 CD daily to help w. tachycardia; most likely worsened by COPD exacerbation; however; since new O2 requirements; may need to be on this dose indefinitely. Continue to monitor - Plan Plan:: COPD exacerbation, Afib RVR, patient is improving symptomatically Will switch to PO steroids, short taper on dc Needs home o2 which will be set up upon d/c cont breathing treatment Given low HR overnight will decrease the dose of Cardizem back to original home dose.
[2019-07-25] MEDS ORDERED: Sodium Chloride 0.9% 500 ML IV SCH (11:45)
--- NOTE | 2019-07-25 12:52 | PCM.DCSUM1 ---
Discharge Summary - Hospital Course Free Text/Narrative:: It is a 74-year-old female with a significant past medical history of COPD, A. fib, abdominal aortic aneurysm, DDD, right hip osteoarthritis, hypothyroidism, hypercholesterolemia presented to ED with worsening of shortness of breath especially at rest. Patient has been seen by her primary provider and advised to be admitted to the hospital numerous times on previous visits (per chart review); patient however did not go in at those times. Patient arrived with family member to emergency department. ED course: O2 saturations had dipped to 88%; patient was placed on 2 L nasal cannula with improvement of her saturations. Chest x-ray did not show any acute infiltrates however was concerning for a mild CHF picture. Initial troponin was negative BNP was elevated however. Was in similar range as previous episodes. recent echo. April 2019 with ejection fraction of 60 to 65%. Patient was admitted for for management of COPD exacerbation. Started on IV steroids. Patient received 1 dose of Lasix 20mg, patient developed Afib with RVR and was treated with IV Cardizem pushes. Patients Cardizem was adjusted to help with the HR. Patient COPD got better, she qualified for home oxygen which was arranged. She has transient soft bp for which she received IV fluid bolus. Hr was normal. Patient was medically stable for d.c with a rapid steroid taper and recommended to f/u with her PCP, neck band maker and district wire chief upon dc. Diagnosis: Stroke: No - Discharge Data Discharge Date: 07/25/19 Discharge Disposition: Home, Self-Care 01 Condition: Fair - Referral to Home Health Primary Care Physician: BRUCE Cunningham - Discharge Diagnosis/Problem(s) (1) Afib SNOMED Code(s): 98104518 ICD Code: I48.91 - UNSPECIFIED ATRIAL FIBRILLATION Status: Acute Current Visit: Yes (2) COPD exacerbation SNOMED Code(s): 862018877 ICD Code: J44.1 - CHRONIC OBSTRUCTIVE PULMONARY DISEASE W (ACUTE) EXACERBATION Status: Acute Current Visit: Yes - Patient Instructions Diet: Heart Healthy Diet Fluid Restriction: 2000 mL Driving: May Drive Today Showering/Bathing: May Shower Notify Provider of: Fever, Increased Pain, Swelling and Redness, Drainage, Nausea and/or Vomiting - Discharge Plan *PRESCRIPTION DRUG MONITORING PROGRAM REVIEWED*: Not Applicable *COPY OF PRESCRIPTION DRUG MONITORING REPORT IN PATIENT SONA: Not Applicable Prescriptions/Med Rec: Azithromycin [Zithromax] 250 mg PO Q24H #7 tablet guaiFENesin [Tussin Honey] 100 mg PO Q8H #1 bottle predniSONE [Prednisone] 40 mg PO DAILY #5 tablet Home Medications: Home Meds Albuterol [Ventolin HFA] 2 puff INH Q4HRRT PRN 07/23/19 [History] Apixaban [Eliquis] 5 mg PO DAILY 07/23/19 [History] Budesonide/Formoterol [Symbicort 160-4.5 MCG] 2 puff INH BID 07/23/19 [History] Diltiazem HCl [Diltiazem 24Hr ER] 180 mg PO BEDTIME 07/23/19 [History] Furosemide 40 mg PO DAILY 07/23/19 [History] LORazepam 0.5 mg PO BID PRN 07/23/19 [History] Levothyroxine Sodium [Synthroid] 112 mcg PO ACBREAKFAST 07/23/19 [History] Montelukast [Singulair] 10 mg PO BEDTIME 07/23/19 [History] Pantoprazole [ProTONIX] 40 mg PO DAILY 07/23/19 [History] Rosuvastatin Calcium 20 mg PO DAILY 07/23/19 [History] Tiotropium [Spiriva HandiHaler] 18 mcg INH DAILY 07/23/19 [History] tiZANidine [Zanaflex] 0 mg PO Q8H PRN 07/23/19 [History] Azithromycin [Zithromax] 250 mg PO Q24H #7 tablet 07/25/19 [Rx] guaiFENesin [Tussin Honey] 100 mg PO Q8H #1 bottle 07/25/19 [Rx] predniSONE [Prednisone] 40 mg PO DAILY #5 tablet 07/25/19 [Rx] Patient Handouts: Chronic Obstructive Pulmonary Disease Exacerbation, Easy-to- Read, Dextromethorphan; Guaifenesin oral solution, Home Oxygen Use, Adult, Azithromycin tablets, Atrial Fibrillation, [id number] Referrals: Nikole Mcleod PA [Primary Care Provider] - (Please call the clinic on Friday and make a 'hospital follow up' appoinment with your primary care physician in 1 -2 weeks) - Discharge Summary/Plan Comment DC Time >30 min.: Yes - Patient Data Vitals - Most Recent: Last Vital Signs Temp 37.3 C 07/25/19 12:00 Pulse 64 07/25/19 12:00 Resp 16 07/25/19 12:00 BP 85/57 L 07/25/19 12:00 Pulse Ox 94 L 07/25/19 07:25 Weight - Most Recent: 104.78 kg I&O - Last 24 hours: Intake & Output 07/24/19 07/25/19 07/25/19 22:59 06:59 14:59 Intake Total 2190 800 Output Total 1600 1675 Balance 590 -875 Lab Results - Last 24 hrs: Laboratory Results - last 24 hr 07/25/19 07/25/19 Range/Units 05:45 05:45 WBC 10.34 (4.0-11.0) K/uL RBC 3.63 L (4.30-5.90) M/uL Hgb 11.5 L (12.0-16.0) g/dL Hct 36.1 (36.0-46.0) % MCV 99.4 H (80.0-98.0) fL MCH 31.7 (27.0-32.0) pg MCHC 31.9 (31.0-37.0) g/dL RDW Std Deviation 60.5 (28.0-62.0) fl RDW Coeff of Anne 17 H (11.0-15.0) % Plt Count 153 (150-400) K/uL MPV 12.30 H (7.40-12.00) fL Neut % (Auto) 91.4 H (48.0-80.0) % Lymph % (Auto) 4.4 L (16.0-40.0) % [place] % (Auto) 4.2 (0.0-15.0) % Eos % (Auto) 0.0 (0.0-7.0) % Baso % (Auto) 0.0 (0.0-1.5) % Neut # (Auto) 9.5 H (1.4-5.7) K/uL Lymph # (Auto) 0.5 L (0.6-2.4) K/uL [place] # (Auto) 0.4 (0.0-0.8) K/uL Eos # (Auto) 0.0 (0.0-0.7) K/uL Baso # (Auto) 0.0 (0.0-0.1) K/uL Nucleated RBC % 0.0 /100WBC Nucleated RBCs # 0 K/uL Sodium 133 L (136-145) mmol/L Potassium 4.5 (3.5-5.1) mmol/L Chloride 97 L (98-107) mmol/L Carbon Dioxide 28.5 (21.0-32.0) mmol/L BUN 30 H (7.0-18.0) mg/dL Creatinine 1.2 H (0.6-1.0) mg/dL Est Cr Clr Drug Dosing 37.01 mL/min Estimated GFR (MDRD) 43.9 ml/min Glucose 175 H (74-106) mg/dL Calcium 9.1 (8.5-10.1) mg/dL Total Bilirubin 0.5 (0.2-1.0) mg/dL AST 24 (15-37) IU/L ALT 27 (14-63) IU/L Alkaline Phosphatase 67 (46-116) U/L Total Protein 5.9 L (6.4-8.2) g/dL Albumin 3.2 L (3.4-5.0) g/dL Globulin 2.7 (2.6-4.0) g/dL Albumin/Globulin Ratio 1.2 (0.9-1.6) Med Orders - Current: Current Medications Albuterol/Ipratropium (Duoneb 3.0-0.5 Mg/3 Ml) 3 ml NEB Q4HRRT PRN PRN Reason: Shortness of Breath Apixaban (Eliquis) 5 mg PO DAILY [facility] Last Admin: 07/25/19 08:01 Dose: 5 mg Azithromycin (Zithromax) 250 mg PO Q24H [facility] Diltiazem HCl (Diltiazem) 20 mg IVPUSH Q4H PRN PRN Reason: Tachycardia Last Admin: 07/24/19 02:57 Dose: 20 mg Diltiazem HCl (Cardizem Cd) 240 mg PO DAILY [facility] Last Admin: 07/25/19 08:30 Dose: Not Given Fluticasone Propionate (Flonase) 0 gm NASBOTH DAILY [facility] Last Admin: 07/25/19 08:02 Dose: 1 spray Furosemide (Lasix) 40 mg PO DAILY [facility] Last Admin: 07/25/19 08:01 Dose: 40 mg Sodium Chloride (Normal Saline) 500 mls @ 999 mls/hr IV ASDIRECTED [facility] Last Admin: 07/25/19 11:52 Dose: 999 mls/hr Levothyroxine Sodium (Levothyroxine) 112 mcg PO ACBREAKFAST [facility] Last Admin: 07/25/19 06:48 Dose: 112 mcg Lorazepam (Ativan) 0.5 mg PO BID PRN PRN Reason: Anxiety Methylprednisolone Sodium Succinate (Solu-Medrol) 40 mg IV Q12HR [facility] Last Admin: 07/25/19 08:02 Dose: 40 mg Montelukast Sodium (Singulair) 10 mg PO BEDTIME [facility] Last Admin: 07/24/19 21:50 Dose: 10 mg Naproxen (Naprosyn) 500 mg PO Q12HR PRN PRN Reason: Pain Last Admin: 07/25/19 04:42 Dose: 500 mg Ondansetron HCl (Zofran Odt) 4 mg PO Q4H PRN PRN Reason: Nausea/Vomiting Pantoprazole Sodium (Protonix) 40 mg PO ACBREAKFAST [facility] Last Admin: 07/25/19 06:48 Dose: 40 mg Rosuvastatin Calcium (Crestor) 20 mg PO DAILY [facility] Last Admin: 07/25/19 08:01 Dose: 20 mg Tizanidine HCl (Zanaflex) 4 mg PO Q8H PRN PRN Reason: Pain Last Admin: 07/25/19 03:04 Dose: 4 mg Discontinued Medications Acetaminophen (Tylenol Extra Strength) 500 mg PO Q6H PRN PRN Reason: Pain Acetaminophen (Tylenol) 650 mg PO Q6H PRN PRN Reason: Headache Albuterol/Ipratropium (Duoneb 3.0-0.5 Mg/3 Ml) 3 ml NEB ONETIME ONE Stop: 07/23/19 14:22 Last Admin: 07/23/19 14:32 Dose: 3 ml Albuterol/Ipratropium (Duoneb 3.0-0.5 Mg/3 Ml) 3 ml NEB Q4HRRT [facility] Last Admin: 07/24/19 09:43 Dose: 3 ml Diltiazem HCl (Cardizem Cd) 180 mg PO BEDTIME [facility] Last Admin: 07/23/19 21:20 Dose: 180 mg Diltiazem HCl (Diltiazem) 20 mg IVPUSH ONETIME ONE Stop: 07/23/19 21:34 Last Admin: 07/23/19 22:03 Dose: 20 mg Doxycycline Hyclate (Vibramycin) 100 mg PO BID [facility] Last Admin: 07/25/19 08:01 Dose: 100 mg Furosemide (Lasix) 20 mg IVPUSH ONETIME ONE Stop: 07/23/19 21:34 Last Admin: 07/23/19 22:03 Dose: 20 mg Sodium Chloride (Normal Saline) 500 mls @ 500 drops/hr IV .BOLUS [facility] Last Admin: 07/23/19 14:59 Dose: 500 drops/hr Magnesium Sulfate 2 gm/ Premix 50 mls @ 50 mls/hr IV ONETIME ONE Stop: 07/23/19 16:25 Last Admin: 07/23/19 15:52 Dose: Not Given Magnesium Sulfate 1 gm/ Sodium (Chloride) 52 mls @ 104 mls/hr IV ONETIME ONE Stop: 07/23/19 16:14 Last Admin: 07/23/19 15:49 Dose: 104 mls/hr Sodium Chloride (Normal Saline) 500 mls @ 999 mls/hr IV STAT ONE Stop: 07/24/19 10:51 Last Admin: 07/24/19 11:31 Dose: 999 mls/hr Ketorolac Tromethamine (Toradol) 15 mg IVPUSH ONETIME ONE Stop: 07/24/19 04:54 Last Admin: 07/24/19 05:03 Dose: 15 mg Lorazepam (Ativan) 0.5 mg PO BID PRN PRN Reason: Anxiety Lorazepam (Ativan) 1 mg PO ONETIME ONE Stop: 07/23/19 23:30 Last Admin: 07/23/19 23:45 Dose: 1 mg Methylprednisolone Sodium Succinate (Solu-Medrol) 125 mg IV ONETIME ONE Stop: 07/23/19 14:46 Last Admin: 07/23/19 14:59 Dose: 125 mg Methylprednisolone Sodium Succinate (Solu-Medrol) 40 mg IV Q8HR [facility] Last Admin: 07/24/19 05:04 Dose: 40 mg Metoprolol Tartrate (Lopressor) 5 mg IVPUSH ONETIME ONE Stop: 07/23/19 23:20 Last Admin: 07/23/19 23:46 Dose: 5 mg Non-Formulary Medication (Diltiazem Hcl [Diltiazem 24hr Er]) 180 mg PO BEDTIME ANGE Tramadol HCl (Ultram) 50 mg PO ONETIME ONE Stop: 07/23/19 23:23 Last Admin: 07/24/19 00:06 Dose: Not Given
[2019-07-26] MEDS ORDERED: Azithromycin 250 MG Tab PO SCH (10:00)
== END 2019-07-25 15:00 | disposition home or self-care (01) ==
LOC: MW.ED 13:57 → MW.MS 17:07
PROVIDERS: ADMIT Student in an Organized Health Care Education/Training Program; ATTEND Student in an Organized Health Care Education/Training Program
DX: J44.1 Chronic obstructive pulmonary disease with (acute) exacerbation (principal); J96.01 Acute respiratory failure with hypoxia; I48.91 Unspecified atrial fibrillation; M16.11 Unilateral primary osteoarthritis, right hip; E03.9 Hypothyroidism, unspecified; E78.00 Pure hypercholesterolemia, unspecified; I50.9 Heart failure, unspecified; F41.9 Anxiety disorder, unspecified; E87.1 Hypo-osmolality and hyponatremia; R79.89 Other specified abnormal findings of blood chemistry; E66.01 Morbid (severe) obesity due to excess calories; Z88.8 Allergy status to other drugs, medicaments and biological substances; Z87.891 Personal history of nicotine dependence
CPT/HCPCS: 36415; 71045; 80053; 81003; 83735; 83880; 84100; 84484; 85025; 85610; 87804; 93005; 94640; 96361; 96365; 96375; 99285; A9270; J1885; J2920; J2930; J3475; J3490; J7040; J7050; 96376; G0378; J7620-GY

== ENCOUNTER 2019-11-30 15:02 | Observation (INO) | payer MEDICAID, MEDICARE ==
[2019-11-30] MEDS ORDERED: Sodium Chloride 0.9% 1,000 ML IV ONE (15:29)
--- NOTE | 2019-11-30 15:37 | EDM.PDOC ---
ED HPI GENERAL MEDICAL PROBLEM - General Chief Complaint: General Stated Complaint: LEG PAIN Time Seen by Provider: 11/30/19 15:33 Source of Information: Reports: Patient History Limitations: Reports: No Limitations - History of Present Illness INITIAL COMMENTS - FREE TEXT/NARRATIVE: This 74-year-old female presents the emergency room with a chief complaint of difficulty breathing and shortness of breath. Patient states she has shortness of breath for a few days. Patient has a history of COPD. Patient also states she just does not feel well. Duration: Day(s):, Getting Worse Location: Reports: Chest Severity: Moderate Improves with: Reports: None Worsens with: Reports: Movement Associated Symptoms: Reports: No Other Symptoms bilateral legs Pain Score (Numeric/FACES): 9 - Related Data Allergies Allergy/AdvReac Type Severity Reaction Status Date / Time all pain meds Allergy Other Uncoded 11/30/19 15:24 Home Meds: Home Meds Albuterol [Ventolin HFA] 2 puff INH Q4HRRT PRN 07/23/19 [History] Apixaban [Eliquis] 5 mg PO DAILY 07/23/19 [History] Budesonide/Formoterol [Symbicort 160-4.5 MCG] 2 puff INH BID 07/23/19 [History] Furosemide 40 mg PO DAILY 07/23/19 [History] LORazepam 0.5 mg PO BID PRN 07/23/19 [History] Levothyroxine Sodium [Synthroid] 112 mcg PO ACBREAKFAST 07/23/19 [History] Montelukast [Singulair] 10 mg PO BEDTIME 07/23/19 [History] Pantoprazole [ProTONIX] 40 mg PO DAILY 07/23/19 [History] Rosuvastatin Calcium 20 mg PO DAILY 07/23/19 [History] Tiotropium [Spiriva HandiHaler] 18 mcg INH DAILY 07/23/19 [History] dilTIAZem HCL [Diltiazem 24Hr ER] 180 mg PO BEDTIME 07/23/19 [History] tiZANidine [Zanaflex] 0 mg PO Q8H PRN 07/23/19 [History] Azithromycin [Zithromax] 250 mg PO Q24H #7 tablet 07/25/19 [Rx] guaiFENesin [Tussin Honey] 100 mg PO Q8H #1 bottle 07/25/19 [Rx] predniSONE [Prednisone] 40 mg PO DAILY #5 tablet 07/25/19 [Rx] Past Medical History HEENT History: Reports: Cataract Cardiovascular History: Reports: Heart Failure, High Cholesterol, Hypertension Other Cardiovascular History: abd aortic aneurysm Respiratory History: Reports: Asthma, COPD Gastrointestinal History: Reports: GERD Genitourinary History: Reports: None HUMAN RESOURCE ADVISER History: Reports: Musculoskeletal History: Reports: Osteoarthritis, Other (See Below) Other Musculoskeletal History: chronic leg pain Psychiatric History: Reports: Anxiety, Depression Other Endocrine/Metabolic History: thyroid problems - Infectious Disease History Infectious Disease History: Reports: Measles, Rubella - Past Surgical History HEENT Surgical History: Reports: Cataract Surgery Cardiovascular Surgical History: Reports: None Respiratory Surgical History: Reports: None GI Surgical History: Reports: Appendectomy, Cholecystectomy Female Surgical History: Reports: Hysterectomy, Salpingo-Oophorectomy Endocrine Surgical History: Reports: None Musculoskeletal Surgical History: Reports: None Social & Family History - Family History Family Medical History: Noncontributory - Tobacco Use Smoking Status *Q: Former Smoker Used Tobacco, but Quit: Yes Month/Year Tobacco Last Used: "a week ago" - Caffeine Use Caffeine Use: Reports: None Caffeine Use Comment: quit using coffee;. - Recreational Drug Use Recreational Drug Use: No ED ROS GENERAL - Review of Systems Review Of Systems: See Below Constitutional: Reports: No Symptoms HEENT: Reports: No Symptoms Respiratory: Reports: No Symptoms, Shortness of Breath Cardiovascular: Reports: No Symptoms, Dyspnea on Exertion Endocrine: Reports: No Symptoms GI/Abdominal: Reports: No Symptoms : Reports: No Symptoms Musculoskeletal: Reports: No Symptoms Skin: Reports: No Symptoms Neurological: Reports: No Symptoms Psychiatric: Reports: No Symptoms Hematologic/Lymphatic: Reports: No Symptoms Immunologic: Reports: No Symptoms ED EXAM, GENERAL - Physical Exam Exam: See Below Exam Limited By: No Limitations General Appearance: Alert, WD/WN, No Apparent Distress Eye Exam: Bilateral Eye: Normal Fundi, Normal Inspection Ears: Normal External Exam, Normal Canal, Hearing Grossly Normal, Normal TMs Ear Exam: Bilateral Ear: Auricle Normal, Canal Normal Nose: Normal Inspection, Normal Mucosa, No Blood Throat/Mouth: Normal Inspection, Normal Lips, Normal Teeth, Normal Oropharynx, Normal Voice Head: Atraumatic, Normocephalic Neck: Normal Inspection, Supple, Non-Tender Respiratory/Chest: No Respiratory Distress, Lungs Clear, Normal Breath Sounds, No Accessory Muscle Use, Chest Non-Tender Cardiovascular: Normal Peripheral Pulses, Regular Rate, Rhythm, No Edema, No JVD , No Murmur, No Rub GI/Abdominal: Normal Bowel Sounds, Soft, Non-Tender, No Organomegaly, No Distention, No Abnormal Bruit, No Mass (Female) Exam: Normal External Exam Rectal (Female) Exam: Deferred Back Exam: Normal Inspection, Full Range of Motion Extremities: Normal Inspection, Normal Range of Motion, No Pedal Edema, Normal Capillary Refill Neurological: Oriented, CN II-XII Intact, Normal Reflexes, No Motor/Sensory Deficits Psychiatric: Normal Affect, Normal Mood Skin Exam: Warm, Dry, Intact, Normal Color Lymphatic: No Adenopathy EKG INTERPRETATION Rhythm: A-Fib Cameron: Normal QRS: Normal ST-T: Normal QT: Normal EKG Interpretation Comments: Atrial fibrillation between 91 and 110 no acute changes Course - Vital Signs Last Recorded V/S: Last Vital Signs Temp 96.3 F L 11/30/19 15:18 Pulse 96 11/30/19 15:28 Resp 20 11/30/19 15:18 BP 99/72 11/30/19 15:18 Pulse Ox 95 11/30/19 15:28 - Orders/Labs/Meds Orders: Active Orders 24 hr Category Date Time Status EKG Documentation Completion [RC] STAT Care 11/30/19 15:15 Active Sodium Chloride 0.9% [Normal Saline] 1,000 ml Med 11/30/19 15:29 Active IV .Bolus Medication Orders Sodium Chloride (Normal Saline) 1,000 mls @ 120 mls/hr IV .Bolus ONE Stop: 11/30/19 23:48 Last Admin: 11/30/19 15:40 Dose: 120 mls/hr Labs: Laboratory Tests 11/30/19 11/30/19 11/30/19 Range/Units 15:39 15:39 15:39 WBC 7.82 (4.0-11.0) K/uL RBC 3.38 L (4.30-5.90) M/uL Hgb 9.6 L (12.0-16.0) g/dL Hct 32.0 L (36.0-46.0) % MCV 94.7 (80.0-98.0) fL MCH 28.4 (27.0-32.0) pg MCHC 30.0 L (31.0-37.0) g/dL RDW Std Deviation 64.0 H (28.0-62.0) fl RDW Coeff of Anne 19 H (11.0-15.0) % Plt Count 179 (150-400) K/uL MPV 11.70 (7.40-12.00) fL Neut % (Auto) 74.6 (48.0-80.0) % Lymph % (Auto) 16.4 (16.0-40.0) % [place] % (Auto) 8.2 (0.0-15.0) % Eos % (Auto) 0.5 (0.0-7.0) % Baso % (Auto) 0.3 (0.0-1.5) % Neut # (Auto) 5.8 H (1.4-5.7) K/uL Lymph # (Auto) 1.3 (0.6-2.4) K/uL [place] # (Auto) 0.6 (0.0-0.8) K/uL Eos # (Auto) 0.0 (0.0-0.7) K/uL Baso # (Auto) 0.0 (0.0-0.1) K/uL Nucleated RBC % 0.4 /100WBC Nucleated RBCs # 0 K/uL INR 1.56 Sodium 135 L (136-145) mmol/L Potassium 3.2 L (3.5-5.1) mmol/L Chloride 98 (98-107) mmol/L Carbon Dioxide 30.2 (21.0-32.0) mmol/L BUN 25 H (7.0-18.0) mg/dL Creatinine 1.1 H (0.6-1.0) mg/dL Est Cr Clr Drug Dosing 40.38 mL/min Estimated GFR (MDRD) 48.6 ml/min Glucose 126 H (74-106) mg/dL Calcium 8.5 (8.5-10.1) mg/dL Total Bilirubin 0.6 (0.2-1.0) mg/dL AST 53 H (15-37) IU/L ALT 45 (14-63) IU/L Alkaline Phosphatase 108 (46-116) U/L Troponin I < 0.050 (0.000-0.056) ng/mL Total Protein 5.9 L (6.4-8.2) g/dL Albumin 3.3 L (3.4-5.0) g/dL Globulin 2.6 (2.6-4.0) g/dL Albumin/Globulin Ratio 1.3 (0.9-1.6) Meds: Medications Generic Name Dose Route Start Last Admin Trade Name Freq PRN Reason Stop Dose Admin Sodium Chloride 1,000 mls @ 120 mls/hr 11/30/19 15:29 11/30/19 15:40 Normal Saline IV 11/30/19 23:48 120 mls/hr .Bolus ONE Administration Discontinued Medications Generic Name Dose Route Start Last Admin Trade Name Freq PRN Reason Stop Dose Admin Methylprednisolone Sodium Succinate 125 mg 11/30/19 15:50 11/30/19 15:40 Solu-Medrol IV 11/30/19 15:51 125 mg ONETIME ONE Administration Departure - Departure Time of Disposition: 16:40 Disposition: Refer to Observation Condition: Good Clinical Impression: COPD exacerbation - Discharge Information Referrals: Nikole Mcleod PA [Primary Care Provider] - Forms: ED Department Discharge Sepsis Event Note - Evaluation Sepsis Screening Result: No Definite Risk - Focused Exam Vital Signs: Vital Signs Temp Pulse Resp BP Pulse Ox 11/30/19 15:28 96 95 11/30/19 15:18 96.3 F L 114 H 20 99/72 92 L Date Exam was Performed: 11/30/19 Time Exam was Performed: 16:38 - My Orders Last 24 Hours: My Active Orders 11/30/19 15:15 EKG Documentation Completion [RC] STAT 11/30/19 15:29 Sodium Chloride 0.9% [Normal Saline] 1,000 ml IV .Bolus - Assessment/Plan Last 24 Hours: My Active Orders 11/30/19 15:15 EKG Documentation Completion [RC] STAT 11/30/19 15:29 Sodium Chloride 0.9% [Normal Saline] 1,000 ml IV .Bolus
[2019-11-30] MEDS ORDERED: methylPREDNISolone Sodium Succinate 125 MG/2 ML SDV IV ONE (15:50)
[2019-11-30 16:15] LABS: BLOOD UREA NITROGEN,BUN 25 mg/dL (7.0-18.0); CARBON DIOXIDE,CO2 30.2 mmol/L (21.0-32.0); CHLORIDE,CL 98 mmol/L (98-107); GLUCOSE RANDOM 126 mg/dL (74-106); POTASSIUM,K 3.2 mmol/L (3.5-5.1); SODIUM,NA 135 mmol/L (136-145)
--- NOTE | 2019-11-30 16:32 | CR ---
Chest: Portable view of the chest was obtained. Comparison: Prior chest x-ray of 07/23/19. Parenchymal density is noted within the left upper and left lower lung. Chronic pulmonary vascular congestion is seen with cardiomegaly. Bony structures are grossly intact. Impression: 1. Parenchymal densities in left upper and left lower lung. Please correlate if patient has infectious symptoms for findings to represent pneumonia. 2. Cardiomegaly and chronic pulmonary vascular congestion is noted. Diagnostic code #3 This report was dictated in MDT
[2019-11-30] MEDS ORDERED: Albuterol HFA 18 Gm Inhaler INH PRN (18:18)
[2019-11-30] MEDS ORDERED: Albuterol 8 GM Inhaler INH PRN (18:23)
[2019-11-30] MEDS ORDERED: LORazepam 0.5 MG Tab PO PRN (20:05)
[2019-11-30] MEDS ORDERED: Diltiazem 25 MG/5 ML SDV IVPUSH PRN (20:07)
--- NOTE | 2019-11-30 20:15 | PCM.HP.2 ---
H&P History of Present Illness - General Date of Service: 11/30/19 Admit Problem/Dx: Admission Diagnosis/Problem Admission Diagnosis/Problem COPD, Mild chronic obstructive pulmonary disease - History of Present Illness Initial Comments - Free Text/Narative: 74-year-old female with a past medical history of COPD, A. fib, abdominal aortic aneurysm, DDD, right hip osteoarthritis, and hypothyroidism who presents to the ED with complaints of hip and leg pain. Patient report a history of degenerative disk disease and has chronic hip pain that shoots down her legs bilaterally. The pain started two years ago. She reports the last to days her pain has been worse. She describes the pain as like restless legs but only worse. She is having difficulty sleeping due to it. She reports allergies to most pain meds including tylenol but has been taking aspirin. She says she takes tramadol sparingly as she is afraid she may develop an allergy to it. She reports chronic shortness of breath due to her COPD but denies any worsening respiratory symptoms, fevers or cough. Patient received IV solumedrol in the ED due to concerns of COPD exacerbation. bilateral legs Pain Score (Numeric/FACES): 7 - Related Data Allergies/Adverse Reactions: Allergies Allergy/AdvReac Type Severity Reaction Status Date / Time acetaminophen Allergy Hives Verified 11/30/19 20:29 codeine Allergy Hives Verified 11/30/19 20:29 fluticasone Allergy Swollen Verified 11/30/19 20:36 [From Advair Diskus] Tongue hydrocodone Allergy Hives Verified 11/30/19 20:32 oxycodone Allergy Hives Verified 11/30/19 21:27 oxymorphone Allergy Hives Verified 11/30/19 20:29 salmeterol Allergy Swollen Verified 11/30/19 20:36 [From Advair Diskus] Tongue bees Allergy Facial Uncoded 11/30/19 20:29 Swelling Home Medications: Home Meds Albuterol [Ventolin HFA] 2 puff INH Q4HRRT PRN 07/23/19 [History] Apixaban [Eliquis] 5 mg PO DAILY 07/23/19 [History] Budesonide/Formoterol [Symbicort 160-4.5 MCG] 2 puff INH BID 07/23/19 [History] Furosemide 40 mg PO DAILY 07/23/19 [History] LORazepam 0.5 mg PO BID PRN 07/23/19 [History] Levothyroxine Sodium [Synthroid] 112 mcg PO ACBREAKFAST 07/23/19 [History] Montelukast [Singulair] 10 mg PO BEDTIME 07/23/19 [History] Pantoprazole [ProTONIX] 40 mg PO DAILY 07/23/19 [History] Rosuvastatin Calcium 20 mg PO DAILY 07/23/19 [History] Tiotropium [Spiriva HandiHaler] 18 mcg INH DAILY 07/23/19 [History] dilTIAZem HCL [Diltiazem 24Hr ER] 180 mg PO BEDTIME 07/23/19 [History] tiZANidine [Zanaflex] 0 mg PO Q8H PRN 07/23/19 [History] Azithromycin [Zithromax] 250 mg PO Q24H #7 tablet 07/25/19 [Rx] guaiFENesin [Tussin Honey] 100 mg PO Q8H #1 bottle 07/25/19 [Rx] predniSONE [Prednisone] 40 mg PO DAILY #5 tablet 07/25/19 [Rx] Past Medical History HEENT History: Reports: Cataract Cardiovascular History: Reports: Heart Failure, High Cholesterol, Hypertension Other Cardiovascular History: abd aortic aneurysm Respiratory History: Reports: Asthma, COPD Gastrointestinal History: Reports: GERD Genitourinary History: Reports: None [employer] History: Reports: Musculoskeletal History: Reports: Osteoarthritis, Other (See Below) Other Musculoskeletal History: chronic leg pain Psychiatric History: Reports: Anxiety, Depression Other Endocrine/Metabolic History: thyroid problems - Infectious Disease History Infectious Disease History: Reports: Measles, Rubella - Past Surgical History HEENT Surgical History: Reports: Cataract Surgery Cardiovascular Surgical History: Reports: None Respiratory Surgical History: Reports: None GI Surgical History: Reports: Appendectomy, Cholecystectomy Female Surgical History: Reports: Hysterectomy, Salpingo-Oophorectomy Endocrine Surgical History: Reports: None Musculoskeletal Surgical History: Reports: None Social & Family History - Family History Family Medical History: Noncontributory - Tobacco Use Smoking Status *Q: Former Smoker Used Tobacco, but Quit: Yes Month/Year Tobacco Last Used: "a week ago" - Caffeine Use Caffeine Use: Reports: None Caffeine Use Comment: quit using coffee;. - Recreational Drug Use Recreational Drug Use: No H&P Review of Systems - Review of Systems: Review Of Systems: See Below Exam - Exam Exam: See Below - Vital Signs Vital Signs: Last Vital Signs Temp 36.4 C 11/30/19 19:05 Pulse 89 11/30/19 19:05 Resp 20 11/30/19 19:05 BP 103/60 11/30/19 19:05 Pulse Ox 95 11/30/19 19:05 Weight: 100.4 kg - Exam General: Alert, Oriented HEENT: Mucosa Moist & [place] Neck: Supple, Trachea Midline Lungs: Clear to Auscultation, Normal Respiratory Effort Cardiovascular: Regular Rate, Regular Rhythm GI/Abdominal Exam: Normal Bowel Sounds, Soft, Non-Tender Extremities: Normal Inspection, Normal Range of Motion, Non-Tender, No Pedal Edema Skin: Warm, Dry, Intact Neurological: No: Focal Deficit - Patient Data Lab Results Last 24 hrs: Laboratory Results - last 24 hr 11/30/19 11/30/19 11/30/19 Range/Units 15:39 15:39 15:39 WBC 7.82 (4.0-11.0) K/uL RBC 3.38 L (4.30-5.90) M/uL Hgb 9.6 L (12.0-16.0) g/dL Hct 32.0 L (36.0-46.0) % MCV 94.7 (80.0-98.0) fL MCH 28.4 (27.0-32.0) pg MCHC 30.0 L (31.0-37.0) g/dL RDW Std Deviation 64.0 H (28.0-62.0) fl RDW Coeff of Anne 19 H (11.0-15.0) % Plt Count 179 (150-400) K/uL MPV 11.70 (7.40-12.00) fL Neut % (Auto) 74.6 (48.0-80.0) % Lymph % (Auto) 16.4 (16.0-40.0) % [place] % (Auto) 8.2 (0.0-15.0) % Eos % (Auto) 0.5 (0.0-7.0) % Baso % (Auto) 0.3 (0.0-1.5) % Neut # (Auto) 5.8 H (1.4-5.7) K/uL Lymph # (Auto) 1.3 (0.6-2.4) K/uL [place] # (Auto) 0.6 (0.0-0.8) K/uL Eos # (Auto) 0.0 (0.0-0.7) K/uL Baso # (Auto) 0.0 (0.0-0.1) K/uL Nucleated RBC % 0.4 /100WBC Nucleated RBCs # 0 K/uL INR 1.56 Sodium 135 L (136-145) mmol/L Potassium 3.2 L (3.5-5.1) mmol/L Chloride 98 (98-107) mmol/L Carbon Dioxide 30.2 (21.0-32.0) mmol/L BUN 25 H (7.0-18.0) mg/dL Creatinine 1.1 H (0.6-1.0) mg/dL Est Cr Clr Drug Dosing 40.38 mL/min Estimated GFR (MDRD) 48.6 ml/min Glucose 126 H (74-106) mg/dL Calcium 8.5 (8.5-10.1) mg/dL Total Bilirubin 0.6 (0.2-1.0) mg/dL AST 53 H (15-37) IU/L ALT 45 (14-63) IU/L Alkaline Phosphatase 108 (46-116) U/L Troponin I < 0.050 (0.000-0.056) ng/mL Total Protein 5.9 L (6.4-8.2) g/dL Albumin 3.3 L (3.4-5.0) g/dL Globulin 2.6 (2.6-4.0) g/dL Albumin/Globulin Ratio 1.3 (0.9-1.6) Result Diagrams: 12/01/19 05:47 12/01/19 05:47 Sepsis Event Note - Evaluation Sepsis Screening Result: No Definite Risk - Focused Exam Vital Signs: Vital Signs Temp Pulse Resp BP Pulse Ox 11/30/19 19:05 36.4 C 89 20 103/60 95 11/30/19 17:32 36.0 C L 107 H 20 120/80 95 11/30/19 15:28 96 95 11/30/19 15:18 35.7 C L 114 H 20 99/72 92 L Date Exam was Performed: 12/01/19 Time Exam was Performed: 09:45 Problem List Initiated/Reviewed/Updated: Yes Orders Last 24hrs: Active Orders 24 hr Category Date Time Status Admission Status [Patient Status] [ADT] Stat ADT 11/30/19 16:42 Active Antiembolic Devices [RC] PER UNIT ROUTINE Care 11/30/19 20:08 Active EKG 12 Lead [EKG Documentation Completion] [RC] ROUTINE Care 11/30/19 19:50 Active Oxygen Therapy [RC] PRN Care 11/30/19 20:08 Active RT Post Treatment Assessment [RC] Click to Edit Care 11/30/19 18:22 Inactive RT Pre-Treatment Assessment [RC] Click to Edit Care 11/30/19 18:22 Inactive Telemetry Monitoring [Cardiac Monitoring] [RC] . Care 11/30/19 17:32 Active DIRECTED Up ad Madelin [RC] ASDIRECTED Care 11/30/19 17:58 Active VTE/DVT Education [RC] PER UNIT ROUTINE Care 11/30/19 20:08 Active Vital Signs [RC] Q4H Care 11/30/19 20:08 Active Regular Diet [DIET] Diet 11/30/19 Dinner Active B-TYPE NATRIURETIC PEPTIDE,BNP [CHEM] Routine Lab 11/30/19 19:50 Ordered BASIC METABOLIC PANEL,BMP [CHEM] AM Lab 12/01/19 05:11 Ordered CBC WITH AUTO DIFF [HEME] AM Lab 12/01/19 05:11 Ordered MAGNESIUM [CHEM] Routine Lab 11/30/19 19:50 Ordered Albuterol [Ventolin HFA] Med 11/30/19 18:23 Active 0 gm INH Q4H PRN Apixaban [Eliquis] Med 12/01/19 09:00 Ordered 5 mg PO DAILY Budesonide/Formoterol [Symbicort 160-4.5 MCG] Med 11/30/19 21:00 Ordered DOSE gm INH BID Diltiazem Med 11/30/19 20:07 Active 10 mg IVPUSH Q3H PRN LORazepam Med 11/30/19 20:05 Ordered 0.5 mg PO BID PRN Levothyroxine Med 12/01/19 07:30 Ordered 112 mcg PO ACBREAKFAST Montelukast [Singulair] Med 11/30/19 21:00 Ordered 10 mg PO BEDTIME Pantoprazole [ProTONIX] Med 12/01/19 09:00 Ordered 40 mg PO DAILY Rosuvastatin Calcium [Rosuvastatin Calcium] Med 12/01/19 09:00 Ordered 20 mg PO DAILY Sodium Chloride 0.9% [Normal Saline] 1,000 ml Med 11/30/19 15:29 Active IV .Bolus Tiotropium [Spiriva HandiHaler] Med 12/01/19 09:00 Ordered 18 mcg INH DAILY dilTIAZem HCL [Diltiazem 24Hr ER] Med 11/30/19 21:00 Ordered 180 mg PO BEDTIME traMADol [Ultram] Med 11/30/19 20:08 Ordered 50 mg PO Q6H PRN Sequential Compression Device [OM.PC] Per Unit Routine Oth 11/30/19 20:08 Ordered Resuscitation Status Routine Resus Stat 11/30/19 20:08 Ordered Medication Orders Albuterol (Ventolin Hfa) 0 gm INH Q4H PRN PRN Reason: Shortness of Breath Apixaban (Eliquis) 5 mg PO DAILY ANGE Budesonide/Formoterol Fumarate (Symbicort 160-4.5 Mcg) gm INH BID ANGE Diltiazem HCl (Diltiazem) 10 mg IVPUSH Q3H PRN PRN Reason: HR above 110 Sodium Chloride (Normal Saline) 1,000 mls @ 120 mls/hr IV .Bolus ONE Stop: 11/30/19 23:48 Last Admin: 11/30/19 15:40 Dose: 120 mls/hr Levothyroxine Sodium (Levothyroxine) 112 mcg PO ACBREAKFAST ANGE Montelukast Sodium (Singulair) 10 mg PO BEDTIME ANGE Non-Formulary Medication (Diltiazem Hcl [Diltiazem 24hr Er]) 180 mg PO BEDTIME ANGE Non-Formulary Medication (Lorazepam) 0.5 mg PO BID PRN PRN Reason: Anxiety Non-Formulary Medication (Rosuvastatin Calcium [Rosuvastatin Calcium]) 20 mg PO DAILY ANGE Pantoprazole Sodium (Protonix) 40 mg PO DAILY ANGE Tiotropium [place] (Spiriva Handihaler) 18 mcg INH DAILY ANGE Tramadol HCl (Ultram) 50 mg PO Q6H PRN PRN Reason: Pain Assessment/Plan Comment:: 74 yo female with pmh COPD, afib, and arthritis who presents with acute on chronic leg pain. Patient reports her pain has improved. We will monitor overnight. Patient's heart rate is elevated so will treat with diltiazem prn and replace her potassium. Will check magnesium and monitor on telemetry. Discussed starting gabapentin as her pain may be neuropathic but patient would prefer to start any new medications in the morning.
[2019-11-30] MEDS ORDERED: Potassium Chloride 20 MEQ Tab.ER PO ONE (20:19)
[2019-11-30] MEDS ORDERED: Montelukast 10 MG Tab PO SCH (21:00)
[2019-11-30] MEDS ORDERED: Diltiazem 180 MG Cap.CD PO SCH (21:00)
--- NOTE | 2019-11-30 21:06 | CR ---
Pelvis and bilateral hips: AP view of the pelvis was obtained as well as AP view of both hips and frog-leg lateral views of both hips. Comparison: No prior pelvis or hip exam. Mild medial joint space narrowing is noted within the left hip. Joint spaces otherwise are preserved within both hips. Extensive lumbar spine surgery is noted. Bony structures are osteopenic. Minimal vascular calcification is noted. No acute fracture or other abnormality is appreciated. Impression: 1. Mild medial joint space narrowing within the left hip. 2. Extensive lumbar spine surgery. 3. Osteopenia and vascular calcification. Diagnostic code #2 This report was dictated in MDT
[2019-11-30] MEDS: Budesonide/Formoterol 160-4.5 MCG/Puff 6 GM Inhaler INH SCH (21:24)
[2019-11-30] MEDS: traMADol 50 MG Tab PO PRN (22:37)
[2019-12-01] MEDS: traMADol 50 MG Tab PO PRN (05:09)
[2019-12-01 06:25] LABS: CARBON DIOXIDE,CO2 25.9 mmol/L (21.0-32.0)
[2019-12-01] MEDS ORDERED: Pantoprazole 40 MG Tab.CR PO SCH ×2 (09:00→10:05)
[2019-12-01] MEDS: Budesonide/Formoterol 160-4.5 MCG/Puff 6 GM Inhaler INH SCH (09:36)
--- NOTE | 2019-12-01 09:57 | PCM.DCSUM1 ---
Discharge Summary - Discharge Data Discharge Date: 12/01/19 Discharge Disposition: Home, Self-Care 01 Condition: Good - Referral to Home Health Primary Care Physician: BRUCE Cunningham - Patient Summary/Data Hospital Course: 74-year-old female with a past medical history of COPD, A. fib, abdominal aortic aneurysm, DDD, right hip osteoarthritis, and hypothyroidism who was admitted for acute exacerbation of her chronic hip and leg pain. She has been recently treated with a steroid taper for a COPD exacerbation and stated her shortness of breath had been improving. In the ED she received IV solumedrol. She was monitored overnight without any events. She was given tramadol for her pain her in the hospital which is what she usually takes at home for exacerbations of her leg and hip pain. She reports improvement in her leg pain. She was noted to have atrial fibrillation with rates in the 100-120s. She was given IV and PO diltiazem for heart rate control. She is agreeable for discharge. We will start gabapentin 300 mg daily to help with pain control. She is to follow up with Nikole Du next week. - Patient Instructions Diet: Usual Diet as Tolerated Notify Provider of: Fever, Increased Pain, Nausea and/or Vomiting - Discharge Plan Prescriptions/Med Rec: Gabapentin [Neurontin] 300 mg PO DAILY #30 cap Home Medications: Home Meds Albuterol [Ventolin HFA] 2 puff INH Q4HRRT PRN 07/23/19 [History] Apixaban [Eliquis] 5 mg PO DAILY 07/23/19 [History] Budesonide/Formoterol [Symbicort 160-4.5 MCG] 2 puff INH BID 07/23/19 [History] Furosemide 40 mg PO DAILY 07/23/19 [History] LORazepam 0.5 mg PO BID PRN 07/23/19 [History] Levothyroxine Sodium [Synthroid] 112 mcg PO ACBREAKFAST 07/23/19 [History] Montelukast [Singulair] 10 mg PO BEDTIME 07/23/19 [History] Pantoprazole [ProTONIX] 40 mg PO DAILY 07/23/19 [History] Rosuvastatin Calcium 20 mg PO DAILY 07/23/19 [History] Tiotropium [Spiriva HandiHaler] 18 mcg INH DAILY 07/23/19 [History] dilTIAZem HCL [Diltiazem 24Hr ER] 180 mg PO BEDTIME 07/23/19 [History] tiZANidine [Zanaflex] 0 mg PO Q8H PRN 07/23/19 [History] Azithromycin [Zithromax] 250 mg PO Q24H #7 tablet 07/25/19 [Rx] guaiFENesin [Tussin Honey] 100 mg PO Q8H #1 bottle 07/25/19 [Rx] predniSONE [Prednisone] 40 mg PO DAILY #5 tablet 07/25/19 [Rx] Gabapentin [Neurontin] 300 mg PO DAILY #30 cap 12/01/19 [Rx] Patient Handouts: Chronic Obstructive Pulmonary Disease Exacerbation, Easy-to- Read Referrals: Nikole Mcleod PA [Primary Care Provider] - 12/07/19 2:00 pm - Discharge Summary/Plan Comment DC Time >30 min.: No - Patient Data Vitals - Most Recent: Last Vital Signs Temp 36.6 C 12/01/19 07:41 Pulse 109 H 12/01/19 07:41 Resp 20 12/01/19 07:41 BP 149/81 H 12/01/19 07:41 Pulse Ox 93 L 12/01/19 07:41 Weight - Most Recent: 100.4 kg I&O - Last 24 hours: Intake & Output 11/30/19 12/01/19 12/01/19 22:59 06:59 14:59 Intake Total 2200 Output Total 950 Balance 1250 Lab Results - Last 24 hrs: Laboratory Results - last 24 hr 11/30/19 11/30/19 11/30/19 Range/Units 15:31 15:31 15:39 WBC 7.82 (4.0-11.0) K/uL RBC 3.38 L (4.30-5.90) M/uL Hgb 9.6 L (12.0-16.0) g/dL Hct 32.0 L (36.0-46.0) % MCV 94.7 (80.0-98.0) fL MCH 28.4 (27.0-32.0) pg MCHC 30.0 L (31.0-37.0) g/dL RDW Std Deviation 64.0 H (28.0-62.0) fl RDW Coeff of Anne 19 H (11.0-15.0) % Plt Count 179 (150-400) K/uL MPV 11.70 (7.40-12.00) fL Neut % (Auto) 74.6 (48.0-80.0) % Lymph % (Auto) 16.4 (16.0-40.0) % [place] % (Auto) 8.2 (0.0-15.0) % Eos % (Auto) 0.5 (0.0-7.0) % Baso % (Auto) 0.3 (0.0-1.5) % Neut # (Auto) 5.8 H (1.4-5.7) K/uL Lymph # (Auto) 1.3 (0.6-2.4) K/uL [place] # (Auto) 0.6 (0.0-0.8) K/uL Eos # (Auto) 0.0 (0.0-0.7) K/uL Baso # (Auto) 0.0 (0.0-0.1) K/uL Nucleated RBC % 0.4 /100WBC Nucleated RBCs # 0 K/uL INR Sodium (136-145) mmol/L Potassium (3.5-5.1) mmol/L Chloride (98-107) mmol/L Carbon Dioxide (21.0-32.0) mmol/L BUN (7.0-18.0) mg/dL Creatinine (0.6-1.0) mg/dL Est Cr Clr Drug Dosing mL/min Estimated GFR (MDRD) ml/min Glucose (74-106) mg/dL Calcium (8.5-10.1) mg/dL Magnesium 1.8 (1.8-2.4) mg/dL Total Bilirubin (0.2-1.0) mg/dL AST (15-37) IU/L ALT (14-63) IU/L Alkaline Phosphatase (46-116) U/L Troponin I (0.000-0.056) ng/mL B-Natriuretic Peptide 376 H (<100) PG/ML Total Protein (6.4-8.2) g/dL Albumin (3.4-5.0) g/dL Globulin (2.6-4.0) g/dL Albumin/Globulin Ratio (0.9-1.6) 11/30/19 11/30/19 12/01/19 Range/Units 15:39 15:39 05:47 WBC 5.16 (4.0-11.0) K/uL RBC 3.50 L (4.30-5.90) M/uL Hgb 10.0 L (12.0-16.0) g/dL Hct 33.0 L (36.0-46.0) % MCV 94.3 (80.0-98.0) fL MCH 28.6 (27.0-32.0) pg MCHC 30.3 L (31.0-37.0) g/dL RDW Std Deviation 63.2 H (28.0-62.0) fl RDW Coeff of Anne 18 H (11.0-15.0) % Plt Count 169 (150-400) K/uL MPV 12.10 H (7.40-12.00) fL Neut % (Auto) 93.0 H (48.0-80.0) % Lymph % (Auto) 5.4 L (16.0-40.0) % [place] % (Auto) 1.6 (0.0-15.0) % Eos % (Auto) 0.0 (0.0-7.0) % Baso % (Auto) 0.0 (0.0-1.5) % Neut # (Auto) 4.8 (1.4-5.7) K/uL Lymph # (Auto) 0.3 L (0.6-2.4) K/uL [place] # (Auto) 0.1 (0.0-0.8) K/uL Eos # (Auto) 0.0 (0.0-0.7) K/uL Baso # (Auto) 0.0 (0.0-0.1) K/uL Nucleated RBC % 0.7 /100WBC Nucleated RBCs # 0 K/uL INR 1.56 Sodium 135 L (136-145) mmol/L Potassium 3.2 L (3.5-5.1) mmol/L Chloride 98 (98-107) mmol/L Carbon Dioxide 30.2 (21.0-32.0) mmol/L BUN 25 H (7.0-18.0) mg/dL Creatinine 1.1 H (0.6-1.0) mg/dL Est Cr Clr Drug Dosing 40.38 mL/min Estimated GFR (MDRD) 48.6 ml/min Glucose 126 H (74-106) mg/dL Calcium 8.5 (8.5-10.1) mg/dL Magnesium (1.8-2.4) mg/dL Total Bilirubin 0.6 (0.2-1.0) mg/dL AST 53 H (15-37) IU/L ALT 45 (14-63) IU/L Alkaline Phosphatase 108 (46-116) U/L Troponin I < 0.050 (0.000-0.056) ng/mL B-Natriuretic Peptide (<100) PG/ML Total Protein 5.9 L (6.4-8.2) g/dL Albumin 3.3 L (3.4-5.0) g/dL Globulin 2.6 (2.6-4.0) g/dL Albumin/Globulin Ratio 1.3 (0.9-1.6) 12/01/19 Range/Units 05:47 WBC (4.0-11.0) K/uL RBC (4.30-5.90) M/uL Hgb (12.0-16.0) g/dL Hct (36.0-46.0) % MCV (80.0-98.0) fL MCH (27.0-32.0) pg MCHC (31.0-37.0) g/dL RDW Std Deviation (28.0-62.0) fl RDW Coeff of Anne (11.0-15.0) % Plt Count (150-400) K/uL MPV (7.40-12.00) fL Neut % (Auto) (48.0-80.0) % Lymph % (Auto) (16.0-40.0) % [place] % (Auto) (0.0-15.0) % Eos % (Auto) (0.0-7.0) % Baso % (Auto) (0.0-1.5) % Neut # (Auto) (1.4-5.7) K/uL Lymph # (Auto) (0.6-2.4) K/uL [place] # (Auto) (0.0-0.8) K/uL Eos # (Auto) (0.0-0.7) K/uL Baso # (Auto) (0.0-0.1) K/uL Nucleated RBC % /100WBC Nucleated RBCs # K/uL INR Sodium 131 L (136-145) mmol/L Potassium 4.0 (3.5-5.1) mmol/L Chloride 96 L (98-107) mmol/L Carbon Dioxide 25.9 (21.0-32.0) mmol/L BUN 24 H (7.0-18.0) mg/dL Creatinine 1.1 H (0.6-1.0) mg/dL Est Cr Clr Drug Dosing 38.75 mL/min Estimated GFR (MDRD) 48.6 ml/min Glucose 196 H (74-106) mg/dL Calcium 8.3 L (8.5-10.1) mg/dL Magnesium (1.8-2.4) mg/dL Total Bilirubin (0.2-1.0) mg/dL AST (15-37) IU/L ALT (14-63) IU/L Alkaline Phosphatase (46-116) U/L Troponin I (0.000-0.056) ng/mL B-Natriuretic Peptide (<100) PG/ML Total Protein (6.4-8.2) g/dL Albumin (3.4-5.0) g/dL Globulin (2.6-4.0) g/dL Albumin/Globulin Ratio (0.9-1.6) Med Orders - Current: Current Medications Albuterol (Ventolin Hfa) 0 gm INH Q4H PRN PRN Reason: Shortness of Breath Apixaban (Eliquis) 5 mg PO DAILY [facility] Budesonide/Formoterol Fumarate (Symbicort 160-4.5 Mcg) 0 gm INH BID ANGE Last Admin: 12/01/19 09:36 Dose: Not Given Diltiazem HCl (Diltiazem) 10 mg IVPUSH Q3H PRN PRN Reason: HR above 110 Last Admin: 11/30/19 23:26 Dose: 10 mg Levothyroxine Sodium (Levothyroxine) 112 mcg PO ACBREAKFAST [facility] Lorazepam (Ativan) 0.5 mg PO BID PRN PRN Reason: Anxiety Last Admin: 11/30/19 20:51 Dose: 0.5 mg Montelukast Sodium (Singulair) 10 mg PO BEDTIME ANGE Non-Formulary Medication (Diltiazem Hcl [Diltiazem 24hr Er]) 180 mg PO BEDTIME ANGE Non-Formulary Medication (Rosuvastatin Calcium [Rosuvastatin Calcium]) 20 mg PO DAILY ANGE Pantoprazole Sodium (Protonix) 40 mg PO DAILY ANGE Tiotropium [place] (Spiriva Handihaler) 18 mcg INH DAILY ANGE Tramadol HCl (Ultram) 50 mg PO Q6H PRN PRN Reason: Pain Last Admin: 12/01/19 05:09 Dose: 50 mg Discontinued Medications Diltiazem HCl (Cardizem Cd) 180 mg PO BEDTIME ANGE Stop: 11/30/19 21:01 Last Admin: 11/30/19 20:51 Dose: 180 mg Sodium Chloride (Normal Saline) 1,000 mls @ 120 mls/hr IV .Bolus ONE Stop: 11/30/19 23:48 Last Admin: 11/30/19 15:40 Dose: 120 mls/hr Methylprednisolone Sodium Succinate (Solu-Medrol) 125 mg IV ONETIME ONE Stop: 11/30/19 15:51 Last Admin: 11/30/19 15:40 Dose: 125 mg Montelukast Sodium (Singulair) 10 mg PO BEDTIME ANGE Stop: 11/30/19 21:01 Last Admin: 11/30/19 20:52 Dose: 10 mg Potassium Chloride (Klor-Con M20) 40 meq PO ONETIME ONE Stop: 11/30/19 20:20 Last Admin: 11/30/19 20:51 Dose: 40 meq
[2019-12-01] MEDS ORDERED: Apixaban 5 MG Tab PO SCH (10:00)
[2019-12-01] MEDS ORDERED: Levothyroxine 112 MCG Tab PO SCH (10:00)
[2019-12-01] MEDS ORDERED: Tiotropium Inhaler 18 MCG Inhalation Powder Cap Kit of 5 INH SCH (10:05)
[2019-12-01] MEDS ORDERED: Rosuvastatin 10 MG Tab PO SCH (10:05)
[2019-12-01] MEDS ORDERED: Montelukast 10 MG Tab PO SCH (21:00)
[2019-12-01] MEDS ORDERED: DILTIAZEM HCL 180 MG PO SCH (21:00)
--- NOTE | 2019-12-02 10:07 | PCM.SN.2 ---
- Free Text/Narrative Note: New prescription for gabapentin provided today, as previously electronic prescription was not transmitted. Dr Velazco aware.
== END 2019-12-01 12:38 | disposition home or self-care (01) ==
LOC: MW.ED 15:02 → MW.MS 16:42
PROVIDERS: ADMIT Internal Medicine; ATTEND Internal Medicine
DX: J44.1 Chronic obstructive pulmonary disease with (acute) exacerbation (principal); G89.29 Other chronic pain; I48.91 Unspecified atrial fibrillation; M16.11 Unilateral primary osteoarthritis, right hip; M79.606 Pain in leg, unspecified; I11.0 Hypertensive heart disease with heart failure; I50.9 Heart failure, unspecified; E78.00 Pure hypercholesterolemia, unspecified; Z88.5 Allergy status to narcotic agent; Z88.8 Allergy status to other drugs, medicaments and biological substances; Z91.030 Bee allergy status; Z87.891 Personal history of nicotine dependence
CPT/HCPCS: 36415; 71045; 73521; 80048; 80053; 83735; 83880; 84484; 85025; 85610; 93005; 96361; 96374; 96375; 99285; A9270; G0378; J2930; J3490; J7030; 99284

== ENCOUNTER 2022-07-12 15:33 | Emergency (ER) | payer MEDICARE ==
[2022-07-12 18:32] LABS: CARBON DIOXIDE,CO2 29.6 mmol/L (21.0-32.0); POTASSIUM,K 3.5 mmol/L (3.5-5.1)
[2022-07-12 19:03] LABS: CORONAVIRUS COVID-19 NAA NEGATIVE (NEGATIVE); INFLUENZA A NAA NEGATIVE (NEGATIVE); INFLUENZA B NAA NEGATIVE (NEGATIVE); RESPIRATORY SYNCYTIAL VIR NAA NEGATIVE (NEGATIVE)
[2022-07-12] MEDS ORDERED: cefTRIAXone 1 GM Vial IM ONE (19:20)
[2022-07-12] MEDS ORDERED: Lidocaine 1% PF 2 ML SDV INJECT ONE (19:21)
== END 2022-07-12 20:24 | disposition home or self-care (01) ==
LOC: MERGE 15:33 → MW.ED 15:33
DX: J40 Bronchitis, not specified as acute or chronic (principal); Z88.6 Allergy status to analgesic agent; Z88.5 Allergy status to narcotic agent; Z79.899 Other long term (current) drug therapy; Z90.49 Acquired absence of other specified parts of digestive tract; Z90.710 Acquired absence of both cervix and uterus; Z20.822 Contact with and (suspected) exposure to COVID-19
CPT/HCPCS: 0241U; 36415; 71045; 80053; 85025; 96372; 99284; J0696

== ENCOUNTER 2023-12-10 20:31 | Emergency (ER) | payer MEDICARE, BC ==
[2023-12-10 20:52] LABS: BASOPHILS ABSOLUTE AUTO 0.03 K/uL (0.00-0.20); BASOPHILS PERCENT AUTO 0.4 % (0.0-1.0); BICARBONATE,VENOUS 34 mEQ/mL (22-28); EOSINOPHILS ABSOLUTE AUTO 0.07 K/uL (0.00-0.45); EOSINOPHILS PERCENT AUTO 0.9 % (0.0-6.0); HEMATOCRIT 42.2 % (37.0-47.0); HEMOGLOBIN 13.7 g/dL (12.0-16.0); IMMATURE GRAN ABSOLUTE AUTO 0.03 K/uL (0.00-0.05); IMMATURE GRAN PERCENT AUTO 0.4 % (0.0-0.4); LYMPHOCYTES ABSOLUTE AUTO 0.97 K/uL (1.00-4.80); LYMPHOCYTES PERCENT AUTO 12.9 % (24.0-44.0); MEAN CORPUSCULAR HEMOGLOBIN 34.4 pg (28.0-32.0); MEAN CORPUSCULAR HGB CONC 32.5 g/dL (32.0-36.0); MEAN PLATELET VOLUME 10.3 fL (9.4-12.3); MONOCYTES ABSOLUTE AUTO 0.78 K/uL (0.00-0.80); MONOCYTES PERCENT AUTO 10.4 % (0.0-8.0); NEUTROPHILS ABSOLUTE AUTO 5.64 K/uL (1.80-7.70); PCO2 VENOUS 58 mmHG (41-51); PH,VENOUS 7.38 (7.31-7.41); PLATELET COUNT,PLT 148 K/uL (150-400); RED BLOOD CELL COUNT 3.98 M/uL (4.10-5.30); WHITE BLOOD CELL COUNT,WBC 7.52 K/uL (3.9-11.3)
[2023-12-10] MEDS: Sodium Chloride 0.9% 10 ML Syringe FLUSH PRN (20:52)
[2023-12-10] MEDS: Sodium Chloride 0.9% 500 ML IV ONE (20:52)
[2023-12-10] MEDS: Sodium Chloride 0.9% 2.5 ML Syringe FLUSH PRN (20:52)
[2023-12-10 20:53] LABS: PO2 VENOUS < 30 mmHG (80-100)
[2023-12-10] MEDS: Ondansetron 4 MG/2 ML SDV IVPUSH ONE (20:53)
[2023-12-10] MEDS: Albuterol/Ipratropium 3.0-0.5 MG/3 ML Neb Soln NEB ONE (20:53)
[2023-12-10 21:11] LABS: INR 1.15 (0.86-1.11); PTT,PARTIAL THROMBOPLSTIN TIME 28.2 SEC (23.9-30.7)
[2023-12-10 21:35] LABS: ALBUMIN 3.3 g/dL (3.4-5.0); BILIRUBIN TOTAL 0.8 mg/dL (0.2-1.0); CALCIUM 9.2 mg/dL (8.5-10.1); CARBON DIOXIDE,CO2 32.4 mmol/L (21.0-32.0); CREATININE 0.9 mg/dL (0.6-1.0); EST CRCL DRUG DOSING (CG) 46.36 mL/min; POTASSIUM,K 3.9 mmol/L (3.5-5.1); PROTEIN TOTAL,TP 6.7 g/dL (6.4-8.2)
[2023-12-10] MEDS: Iopamidol 755 MG/ML 500 ML Multipack Bottle IVPUSH ONE (22:18)
== END 2023-12-11 02:45 | disposition home or self-care (01) ==
LOC: MW.ED 20:31
DX: I71.40 Abdominal aortic aneurysm, without rupture, unspecified (principal); J43.9 Emphysema, unspecified; J38.7 Other diseases of larynx; R55 Syncope and collapse; I48.91 Unspecified atrial fibrillation; E78.00 Pure hypercholesterolemia, unspecified; I13.0 Hypertensive heart and chronic kidney disease with heart failure and stage 1 through stage 4 chronic kidney disease, or unspecified chronic kidney disease; I50.9 Heart failure, unspecified; N18.9 Chronic kidney disease, unspecified; E03.9 Hypothyroidism, unspecified; Z88.8 Allergy status to other drugs, medicaments and biological substances; Z88.6 Allergy status to analgesic agent; Z88.5 Allergy status to narcotic agent; Z91.030 Bee allergy status; Z79.899 Other long term (current) drug therapy; Z79.01 Long term (current) use of anticoagulants
CPT/HCPCS: 36415; 74177; 80053; 80307; 82803; 82947; 83690; 84484; 85025; 85610; 85730; 86850; 86900; 86901; 93005; 96361; 96374; 99285; J2405; J3490; J7040; Q9967; 93010; 99284; J7620-GY